=== PATIENT | female | born 1950 | race Caucasian/White ===

== ENCOUNTER → 2019-10-30 16:43 | Outpatient (CLI) | payer MEDICARE, OTHER, SELFPAY ==
--- NOTE | 2019-10-30 17:05 | DI.MG.S_ITS ---
Patient Name: CHELLE CHOWDHURY date: 1950 Sex: F Attending Physician: Nubia Indications: Date: 10/30/2019 16:56 At the request of: KEVIN JUAREZ Procedure: MM screening mammo BI BILATERAL DIGITAL SCREENING MAMMOGRAM 3D/2D WITH CAD: 10/30/2019 CLINICAL: Routine screening. Comparison is made to exams dated: 03/11/2018 mammogram, 05/08/2016 mammogram, and 10/27/2013 mammogram - outside location. The tissue of both breasts is predominantly fatty. Current study was also evaluated with a Computer Aided Detection (CAD) system. No significant masses, calcifications, or other findings are seen in either breast. There has been no significant interval change. IMPRESSION: NEGATIVE There is no mammographic evidence of malignancy. A 1 year screening mammogram is recommended. This exam was interpreted at Station ID: [id number]. NOTE: For mammograms, a report in lay terms will be sent to the patient. Approximately 15% of breast malignancies will not be visualized mammographically. In the management of a palpable breast mass, a negative mammogram must not discourage biopsy of a clinically suspicious lesion. Electronically Signed By: Rambo jeronimo/stanford:10/31/2019 07:48:05 letter sent: Normal Exam ACR BI-RADS Category 1: Negative 3341F
== END ==
PROVIDERS: PCP Family Medicine; Referring Provider Family Medicine; Visit Provider Family Medicine
DX: Z12.31 Encounter for screening mammogram for malignant neoplasm of breast (principal)
CPT/HCPCS: 77063; 77067

== ENCOUNTER → 2020-01-01 19:33 | Outpatient (CLI) | payer MEDICARE, OTHER, SELFPAY ==
--- NOTE | 2020-01-01 | DI.RAD.S_ITS ---
PROCEDURE: XR KNEE STANDING BI INDICATIONS: Acute Left Knee Pain TECHNIQUE: A total of 2 views of the bilateral knees were obtained, weight-bearing frontal projections. COMPARISON: None. FINDINGS: Bones: No acute fractures or dislocations. Patellar alignment is normal on the sunrise view. No suspicious bony lesions. Joint spaces appear mildly reduced medially with weightbearing. Soft tissues: No knee joint effusions. No suspicious soft tissue calcification. IMPRESSION: A mild degree of medial compartment joint space narrowing is present symmetric bilaterally consistent with mild osteoarthritis as the underlying cause. Dictated by: Garo Blanco M.D. on 01/02/2020 at 9:12 Approved by: Garo Blanco M.D. on 01/02/2020 at 9:14
--- NOTE | 2020-01-01 | DI.RAD.S_ITS ---
PROCEDURE: XR KNEE LT 3V INDICATIONS: Acute Left Knee Pain TECHNIQUE: 3 views of the knee were acquired. COMPARISON: None. FINDINGS: Bones: No fractures or dislocations. No suspicious bony lesions. Soft tissues: No joint effusion. No suspicious soft tissue calcifications. IMPRESSION: No acute disease, minimal medial compartment jooint space narrowing. Dictated by: Garo Blanco M.D. on 01/02/2020 at 7:47 Approved by: Garo Blanco M.D. on 01/02/2020 at 7:48
== END ==
PROVIDERS: PCP Family Medicine; Referring Provider Family Medicine; Visit Provider Family Medicine
DX: M25.562 Pain in left knee (principal)
CPT/HCPCS: 73562; 73565

== ENCOUNTER → 2020-01-04 18:01 | Outpatient (CLI) | payer MEDICARE, OTHER, SELFPAY ==
--- NOTE | 2020-01-04 | DI.MRI.S_ITS ---
PROCEDURE: MR KNEE LT WO CON INDICATIONS: Acute left knee pain TECHNIQUE: Noncontrast sagittal PD fast spin echo and T2 fast spin echo with fat saturation, sagittal 3-D FLASH with fat saturation; coronal T1 spin echo and PD fast spin echo with fat saturation, and axial PD fast spin echo with fat saturation through the knee. COMPARISON: [facility], CR, XR KNEE STANDING BI, 01/01/2020, 19:41. FINDINGS: Image quality: There is mild inhomogeneous fat saturation. Menisci: There is a horizontally oriented longitudinal tear throughout the lateral meniscus involving the free edge and inferior articular surface. There is also extension peripherally with a parameniscal cyst in the lateral gutter measuring up to approximately 2.4 x 1.0 x 0.8 cm. The medial meniscus demonstrates mild degenerative signal without a discrete tear. The meniscal root ligaments also appear intact. Cruciate ligaments: The anterior and posterior cruciate ligaments appear intact. Medial structures: The medial collateral ligament appears intact. The semimembranosus tendon insertions and meniscocapsular junction appear intact. Visualized portions of the pes anserinus tendons appear intact without associated bursal fluid collections. Lateral structures: The lateral collateral ligament, long and short heads of the biceps femoris tendon appear intact. The popliteus tendon appears intact. Iliotibial band appears normal. Anterior structures: The quadriceps and patellar tendons appear intact. There is slight lateral tilt of the patella. No femoral trochlear dysplasia or ventral trochlear prominence. No edema in the infrapatellar fat pad. Bones and cartilage: No bone marrow contusions or fractures. There is mild cartilage thinning in the patellofemoral compartment with chondral fissuring along the median ridge of the patella with a small focus of subchondral edema. Joint space: There is physiologic knee joint fluid. No Son's cyst. Normal appearing synovial plicae are incidentally noted. IMPRESSION: 1. Complex tearing of the lateral meniscus with an associated parameniscal cyst in the lateral gutter. 2. Mild chondral fissuring along the median ridge of the patella with associated mild subchondral edema. Dictated by: Fitz Castillo M.D. on 01/05/2020 at 9:53 Approved by: Fitz Castillo M.D. on 01/05/2020 at 9:59
== END ==
PROVIDERS: PCP Family Medicine; Referring Provider Family Medicine; Visit Provider Family Medicine
DX: M25.562 Pain in left knee (principal); S83.8X2A Sprain of other specified parts of left knee, initial encounter
CPT/HCPCS: 73721

== ENCOUNTER 2020-08-11 10:38 | Emergency (ER) | payer MEDICARE, OTHER, SELFPAY ==
--- NOTE | 2020-08-11 10:42 | DI.RAD.S_ITS ---
PROCEDURE: XR CHEST 1V INDICATIONS: chest pain TECHNIQUE: One view of the chest was acquired. COMPARISON: None. FINDINGS: Surgical changes and devices: None. Lungs and pleura: Lungs are clear. No pleural effusions or pneumothorax. Mediastinum: Mediastinal contours appear normal. Heart size is normal. Bones and chest wall: No suspicious bony lesions. Overlying soft tissues appear unremarkable. IMPRESSION: No evidence acute pulmonary process. Dictated by: Jake Branch M.D. on 08/11/2020 at 10:25 Approved by: Jake Branch M.D. on 08/11/2020 at 10:26
[2020-08-11 10:43] VITALS: BMI 21.1
--- NOTE | 2020-08-11 10:57 | PC.NURSE ---
h/o stable angina and had RX nitro at home. Pt states she was hiking and started to have CP rad to L arm. resolved with rest and nitro x 2. takes verapamil 120mg daily. states triggered by heat and activity. Lungs clear. slight murmur heard in R sternal border. BP 158/91 s/p NTG x2 at home. 99% RA 66HR regular.
[2020-08-11 11:07] LABS: Add Manual Diff / Slide Review NO; Basophils Absolute Auto 0 /uL (0-100); Basophils Percent Auto 0.7 % (0-2); Eosinophils Absolute Auto 100 /uL (0-450); Eosinophils Percent Auto 1.3 % (2-4); Hematocrit 38.5 % (36-46); Lymphocytes Absolute Auto 1600 /uL (1100-4500); Lymphocytes Percent Auto 30.7 % (25-40); Mean Corpuscular HGB Conc 33.9 % (30-36); Mean Corpuscular Hemoglobin 31.4 PG (26-34); Mean Corpuscular Volume 92.7 fL (80-100); Monocytes Absolute Auto 400 /uL (0-900); Monocytes Percent Auto 8.3 % (3-14); Neutrophils Absolute Auto 3100 /uL (1500-7000); Platelet Count 176 X10^3/uL (150-400); Red Blood Cell Count 4.15 X10^6/uL (4.0-5.2); Red Cell Distribution Width 12.2 % (11.6-14.8); White Blood Cell Count 5.3 X10^3/uL (4.5-11.0)
[2020-08-11 11:26] LABS: Alanine Aminotransferase 34 IU/L (<35); Albumin 4.1 g/dL (3.5-5.0); Albumin Globulin Ratio 1.6 (1.0-2.8); Alkaline Phosphatase 56 U/L (38-126); Aspartate Aminotransferase 44 IU/L (14-36); BUN Creatinine Ratio 23.4 (6-22); Bilirubin Total 0.8 mg/dL (0.2-1.3); Blood Urea Nitrogen 18 mg/dL (7-17); Calcium 9.1 mg/dL (8.4-10.2); Carbon Dioxide 27 mmol/L (22-32); Chloride 101 mmol/L (98-107); Creatine Kinase 195 U/L (30-135); Estimated Glomerular Filt Rate > 60.0 mL/min (>60); Globulin 2.6 g/dL (1.7-4.1); Glucose 122 mg/dL (80-110); HEMOLYSIS < 15 (0-50); Lipase 184 U/L (23-300); Potassium 3.6 mmol/L (3.4-5.1); Sodium 135 mmol/L (137-145); Total Protein 6.7 g/dL (6.3-8.2)
[2020-08-11 11:37] LABS: Troponin I < 0.012 ng/mL (0.01-0.034)
[2020-08-11 11:41] LABS: CKMB % Relative Index 1.3 % (1.5-5.0); Creatine Kinase MB 2.53 ng/mL (<2.37)
[2020-08-11 12:23] VITALS: BP 164/90; PULSE 83; RESP 16; O2SAT 99
[2020-08-11 13:37] LABS: Troponin I < 0.012 ng/mL (0.01-0.034)
--- NOTE | 2020-08-11 14:06 | ED.CHESTPAIN ---
HPI - Chest Pain General Chief Complaint: Chest Pain Stated Complaint: chest pain Time Seen by Provider: 08/11/20 13:09 Source: patient Mode of arrival: Ambulatory Limitations: no limitations History of Present Illness HPI narrative: This is a 70-year-old female comes emergency department with complaint of anginal symptoms. Patient states that she was on a hike today in the heat after she completed hiking she started to have discomfort in her left upper extremity. She felt just some pressure sort of discomfort. She states it did not radiate to her chest, neck or back. Patient states that symptoms resolved after she took nitro sublingual that she had. She had similar symptoms 11 years ago, she had elevation in her troponin at that time. 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 Patient takes amlodipine daily. She takes aspirin intermittently. She does not take any other daily medications. She does not currently follow with a paymaster of purses. Patient has not had any cardiac stents. She has not had any stress testing since that time. She denies diaphoresis, nausea, shortness of breath. She denies any numbness or tingling down her arm. She denies any sense of syncope or lightheadedness. She denies any abdominal pain. Review of Systems Review of Systems ROS Unobtainable: All systems reviewed & are unremarkable except as noted in HPI and below Exam Narrative Exam Narrative: GENERAL: Alert and oriented x three, Well-nourished female in mild distress. HEENT: Head normocephalic, atraumatic, EOMI, pupils reactive, face symmetric, moist mucous membranes NECK: Supple, full range of motion CARDIOVASCULAR: Regular rate and rhythm without murmurs, rubs or gallops. RESPIRATORY: Breath sounds equal bilaterally, no wheezes rales or rhonchi. ABDOMEN: Soft, nontender. Normoactive bowel sounds all 4 quadrants. No guarding or rebound, rigidity, no mass : No CVA tenderness EXTREMITIES: Normal range of motion, no clubbing or edema. Neurovascularly intact NEUROLOGICAL: Cranial nerves II through XII grossly intact. Moving all extremities SKIN: Warm, dry, no petechiae, no rashes or lesions. Initial Vital Signs Initial Vital Signs: Vital Signs Pulse Rate 83 08/11/20 12:23 Respiratory Rate 16 08/11/20 12:23 Blood Pressure 164/90 H 08/11/20 12:23 Pulse Oximetry 99 08/11/20 12:23 Scores HEART Score Heart Score history: Highly Suspicious Heart Score EKG: Non-Specific repolarization disturbance Heart Score Age: > or = 65 years old Heart Score risk factors: 1-2 risk factors Heart Score troponin: < or = to normal limit Heart Score Total: 6 Course Orders Ordered: ED Orders 08/11/20 13:00 Troponin I Stat 08/11/20 13:03 EKG-12 Lead Stat Consultations Consultation #1: Estela for cardiology, discussed the patient did not wish to stay. She politely refused observation but I feel she would benefit from follow-up and cardiac evaluation. Patient does not have a local Cardiology and he states they are happy to follow with the patient. Time: 14:22 Vital Signs Vital signs: Vital Signs - 8 hr 08/11/20 12:23 08/11/20 14:30 Pulse Rate 83 62 Respiratory Rate 16 16 Blood Pressure 164/90 H 166/82 H Pulse Oximetry 99 98 MDM - Chest Pain Lab Data Attestation: I reviewed the patient's lab results. Result diagrams: 08/11/20 10:52 08/11/20 10:52 Labs: Lab Results 08/11/20 08/11/20 08/11/20 Range/Units 10:52 10:52 13:00 WBC 5.3 (4.5-11.0) X10^3/uL RBC 4.15 (4.0-5.2) X10^6/uL Hgb 13.0 (12.0-16.0) g/dL Hct 38.5 (36-46) % MCV 92.7 (80-100) fL MCH 31.4 (26-34) PG MCHC 33.9 (30-36) % RDW 12.2 (11.6-14.8) % Plt Count 176 (150-400) X10^3/uL Neut % (Auto) 59.0 (50-75) % Lymph % (Auto) 30.7 (25-40) % [place] % (Auto) 8.3 (3-14) % Eos % (Auto) 1.3 L (2-4) % Baso % (Auto) 0.7 (0-2) % Neut # (Auto) 3100 (0055-8026) /uL Lymph # (Auto) 1600 (9046-0287) /uL [place] # (Auto) 400 (0-900) /uL Eos # (Auto) 100 (0-450) /uL Baso # (Auto) 0 (0-100) /uL Sodium 135 L (137-145) mmol/L Potassium 3.6 (3.4-5.1) mmol/L Chloride 101 (98-107) mmol/L Carbon Dioxide 27 (22-32) mmol/L BUN 18 H (7-17) mg/dL Creatinine 0.77 (0.52-1.04) mg/dL Estimated GFR > 60.0 (>60) mL/min BUN/Creatinine Ratio 23.4 H (6-22) Glucose 122 H (80-110) mg/dL Calcium 9.1 (8.4-10.2) mg/dL Total Bilirubin 0.8 (0.2-1.3) mg/dL AST 44 H (14-36) IU/L ALT 34 (<35) IU/L Alkaline Phosphatase 56 (38-126) U/L Total Creatine Kinase 195 H (30-135) U/L CK-MB (CK-2) 2.53 H (<2.37) ng/mL CK-MB (CK-2) Rel Index 1.3 L (1.5-5.0) % Troponin I < 0.012 < 0.012 (0.01-0.034) ng/mL Total Protein 6.7 (6.3-8.2) g/dL Albumin 4.1 (3.5-5.0) g/dL Globulin 2.6 (1.7-4.1) g/dL Albumin/Globulin Ratio 1.6 (1.0-2.8) Lipase 184 (23-300) U/L Imaging Data Chest x-ray: Radiologist's Impression: Patricia Rodriguez 70 F [address] [id number] ReportSigned Patient: Patricia Rodriguez EMR#: [id number]: 9Acct:[id number]/Sex: 70 / FDate of Service: 08/11/20Loc: EDAccession Number: [id number] Procedure: XR chest 1V Ordering Provider: Bijal Franklin D.O. PROCEDURE: XR CHEST 1V INDICATIONS: chest pain TECHNIQUE: One view of the chest was acquired. COMPARISON: None. FINDINGS: Surgical changes and devices: None. Lungs and pleura: Lungs are clear. No pleural effusions or pneumothorax. Mediastinum: Mediastinal contours appear normal. Heart size is normal. Bones and chest wall: No suspicious bony lesions. Overlying soft tissues appear unremarkable. IMPRESSION: No evidence acute pulmonary process. Dictated by: Jake Branch M.D. on 08/11/2020 at 10:25 Approved by: Jake Branch M.D. on 08/11/2020 at 10:26 ECG Data Attestation: I personally reviewed and interpreted this ECG as follows: Prior ECG tracings: available for review Interpretation: EKG 1. Shows a rate of 80, P are 148, QRS is 74 and QTC of 424. Inverted T-wave in lead 3. Possibly some depression in AVF. No elevation is appreciated. EKG 2. Shows sinus rhythm. Rate of 73 P are 132, QRS is 76 and QTC 431. Patient has similar changes in lead 3. No elevation appreciated. MDM Narrative Medical decision making narrative: Discussed with patient offered observation as I feel this is cardiac in nature. She is reluctant to stay. She has nitro at home which was helpful for her symptoms and resolved them. Encourage take an aspirin daily and have short-term follow-up with cardiology for stress testing. She has a primary care physician she can contact and also reached out to Cardiology myself to help her facilitate short-term follow-up. Patient is aware that I am concerned about a cardiac cause and that it has been 11 years since her last catheterization and she could very easily have developed atherosclerotic disease. Patient was encouraged to return any time if she had recurrent symptoms or concerns. Discharge Plan Departure Patient Disposition: Home Clinical Impression: Chest pain Instructions: DI for Angina Activity Restrictions/Additional Instructions: Follow up with your physician or cardiology for evaluation and stress testing in the next couple days. I would recommend observation overnight for serial heart enzymes and stress testing tomorrow. I do think your symptoms are related to your heart although your troponin today is negative. Continue an aspirin 324mg daily Continue your home medications as prescribed If you have recurrent symptoms please take a nitro please stay and return to the emergency department. Please return for new or worsening symptoms, recurrent chest pain, arm discomfort or neck pain, lightheadedness, passingOut, diaphoresis, shortness of breath, persistent nausea or vomiting or other new or concerning symptoms. Referrals: Marquis Delacruz MD [Primary Care Provider] - Rk Bustamante MD [Physician] -
[2020-08-11 14:30] VITALS: BP 166/82; PULSE 62; RESP 16; O2SAT 98
== END 2020-08-11 14:30 | disposition home or self-care (01) ==
PROVIDERS: Emergency Provider Emergency Medicine; PCP Family Medicine
DX: R07.9 Chest pain, unspecified (principal)
CPT/HCPCS: 36415; 71045; 80053; 82550; 82553; 83690; 84484; 85025; 93005; 99283; 99284

== ENCOUNTER → 2020-08-27 13:49 | Outpatient (CLI) | payer MEDICARE, OTHER, SELFPAY ==
--- NOTE | 2020-08-27 | DI.RAD.S_ITS ---
PROCEDURE: XR KNEE RT 3V INDICATIONS: pain right knee, with sensations of clicking and locking TECHNIQUE: 3 views of the knee were acquired. COMPARISON: None. FINDINGS: Bones: No fractures or dislocations. No suspicious bony lesions. Mild medial and patellofemoral compartment osteoarthritis with marginal osteophytosis. Soft tissues: No joint effusion. No suspicious soft tissue calcifications. IMPRESSION: Mild medial patellofemoral compartment right knee osteoarthritis. Dictated by: Michelle Rodriguez MD, PhD on 08/27/2020 at 16:07 Approved by: Michelle Rodriguez MD, PhD on 08/27/2020 at 16:08
== END ==
PROVIDERS: PCP Family Medicine; Referring Provider Family Medicine; Visit Provider Family Medicine
DX: M25.561 Pain in right knee (principal); M23.91 Unspecified internal derangement of right knee; M17.11 Unilateral primary osteoarthritis, right knee
CPT/HCPCS: 73562

== ENCOUNTER → 2020-09-17 18:28 | Outpatient (CLI) | payer MEDICARE, OTHER, SELFPAY ==
--- NOTE | 2020-09-17 | DI.MRI.S_ITS ---
PROCEDURE: MR KNEE RT WO CON INDICATIONS: Other instability, right knee TECHNIQUE: Noncontrast sagittal PD fast spin echo and T2 fast spin echo with fat saturation, sagittal 3-D FLASH with fat saturation; coronal T1 spin echo and PD fast spin echo with fat saturation, and axial PD fast spin echo with fat saturation through the knee. COMPARISON: [facility], MR, MR KNEE LT WO CON, 01/04/2020, 18:20. FINDINGS: Menisci: Medial meniscus: Ill-defined medial meniscal intrasubstance signal changes and mild enlargement involving the body with partial extrusion. Lateral meniscus: Discoid appearance. Irregularity of the free margin of the lateral meniscus at the junction of the anterior horn and body Cruciate ligaments: Anterior cruciate ligament: Intact. Posterior cruciate ligament: Intact. Medial structures: The medial collateral ligament: Intact. Semimembranosus tendon: Intact. Visualized pes anserinus tendons: Intact. Bursal fluid: none. Lateral structures: The lateral collateral ligament intact. Biceps femoris tendon appears intact. Popliteus tendon grossly unremarkable. Iliotibial band appears intact. Anterior structures: Quadriceps tendon: Intact. Medial patellofemoral ligament: Intact. Lateral patellofemoral ligament: Intact. Patellar tendon: Mild distal tendinopathy. Anterior soft tissues: Prepatellar and superficial infrapatellar subcutaneous edema/fluid. Deep infrapatellar region: Trace fluid. Bones and cartilage: Marrow: No focal marrow contusion or discrete low signal fracture line. Medial compartment: No focal chondral defect. Mild intrasubstance signal changes. Lateral compartment: No chondral defect. Patellofemoral compartment: Mild surface fraying of the cartilage overlying the median patellar ridge with trace subchondral marrow signal change. The femoral trochlear cartilage appears grossly intact. Joint space: Effusion: No pathologic knee joint effusion. Popliteal fossa: Small Son's cyst measuring 3 cm in the cephalocaudal dimension. Loose bodies: None. IMPRESSION: Discoid lateral meniscus, with irregularity involving the free margin at the junction of the anterior horn and body. This is only seen on 1 plane and does not meet strict criteria, although is suspicious for tear. Please correlate clinically to exam findings. 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 Small Son's cyst Mild patellofemoral chondromalacia Dictated by: Rosalino Isabel M.D. on 09/18/2020 at 10:49 Approved by: Rosalino Isabel M.D. on 09/18/2020 at 10:56
== END ==
PROVIDERS: PCP Family Medicine; Referring Provider Family Medicine; Visit Provider Family Medicine
DX: M25.361 Other instability, right knee (principal); M25.561 Pain in right knee; M71.21 Synovial cyst of popliteal space [Baker], right knee; M22.41 Chondromalacia patellae, right knee
CPT/HCPCS: 73721

== ENCOUNTER → 2020-09-23 14:26 | Outpatient (CLI) | payer MEDICARE, OTHER, SELFPAY ==
--- NOTE | 2020-09-23 | DI.US.S_ITS ---
PROCEDURE: US PELVIC COMPLETE INDICATIONS: RT CYST TECHNIQUE: Real-time scanning was performed of the pelvic organs, with image documentation. Additional endovaginal scanning was necessary due to incomplete visualization of the adnexal and endometrial structures by transabdominal scanning. COMPARISON: [facility], RG, US PELVIC, 05/04/2018, 7:25. FINDINGS: Uterus: Uterus is normal in size at 5.3 x 1.8 x 3.3 cm. The endometrium measures 1.4 mm in combined thickness. Possible submucosal fibroid measuring 4 mm. Anterior subserosal fibroid also present measuring 9 mm. Ovaries: Left ovary is not visualized. Right ovary measures 4.8 x 3.2 x 3.8 cm and there is a 4.0 x 3.5 x 3.9 cm right ovarian cyst. Other: No pathologic free abdominal or pelvic fluid. IMPRESSION: 1. 4 cm right simple ovarian cyst which appears similar to prior examination dated 05/04/2018. Continued sonographic surveillance is recommended. 2. Possible 4 mm submucosal fibroid in 9 mm subserosal fibroid. Dictated by: Caleb OCAMPO Interpreted: Mariela Price MD on 09/23/2020 at 15:44 Approved by: Mariela Price M.D. on 09/23/2020 at 16:34
== END ==
PROVIDERS: PCP Family Medicine; Referring Provider Family Medicine; Visit Provider Family Medicine
DX: N83.291 Other ovarian cyst, right side (principal); D25.2 Subserosal leiomyoma of uterus
CPT/HCPCS: 76830; 76856

== ENCOUNTER → 2021-01-23 13:24 | Outpatient (CLI) | payer MEDICARE, OTHER, SELFPAY ==
--- NOTE | 2021-01-23 13:27 | DI.RAD.S_ITS ---
PROCEDURE: XR HIP W PEL IF DONE LT 2V INDICATIONS: L hip pain, sharp, hx of lymphoma TECHNIQUE: AP pelvis with lateral view(s) of the left hip(s). COMPARISON: None. FINDINGS: Bones: No fractures or dislocations. Mild left hip joint osteoarthritic changes are seen. Pelvic ring appears intact. No suspicious bony lesions. Soft tissues: The visualized bowel gas pattern is normal. No suspicious soft tissue calcifications. IMPRESSION: No hip fracture or dislocation. Mild left hip joint osteoarthritis. No evidence of avascular necrosis. No gross osseous lesion is seen. Dictated by: Tapan Shearer M.D. on 01/23/2021 at 14:01 Approved by: Tapan Shearer M.D. on 01/23/2021 at 14:02
[2021-01-23 13:46] LABS: Add Manual Diff / Slide Review NO; Basophils Absolute Auto 0 /uL (0-100); Basophils Percent Auto 0.6 % (0-2); Eosinophils Absolute Auto 100 /uL (0-450); Eosinophils Percent Auto 0.9 % (2-4); Hematocrit 40.9 % (36-46); Lymphocytes Absolute Auto 1400 /uL (1100-4500); Lymphocytes Percent Auto 22.7 % (25-40); Mean Corpuscular HGB Conc 34.2 % (30-36); Mean Corpuscular Hemoglobin 31.5 PG (26-34); Mean Corpuscular Volume 92.3 fL (80-100); Monocytes Absolute Auto 500 /uL (0-900); Monocytes Percent Auto 7.6 % (3-14); Neutrophils Absolute Auto 4200 /uL (1500-7000); Neutrophils Percent Auto 68.2 % (50-75); Platelet Count 229 X10^3/uL (150-400); Red Blood Cell Count 4.43 X10^6/uL (4.0-5.2); Red Cell Distribution Width 12.5 % (11.6-14.8); White Blood Cell Count 6.1 X10^3/uL (4.5-11.0)
[2021-01-23 14:09] LABS: Alanine Aminotransferase 28 IU/L (<35); Albumin 4.4 g/dL (3.5-5.0); Albumin Globulin Ratio 1.5 (1.0-2.8); Alkaline Phosphatase 68 U/L (38-126); Aspartate Aminotransferase 34 IU/L (14-36); BUN Creatinine Ratio 21.4 (6-22); Bilirubin Total 0.5 mg/dL (0.2-1.3); Blood Urea Nitrogen 18 mg/dL (7-17); Calcium 9.6 mg/dL (8.4-10.2); Carbon Dioxide 30 mmol/L (22-32); Chloride 102 mmol/L (98-107); Estimated Glomerular Filt Rate > 60.0 mL/min (>60); Globulin 2.9 g/dL (1.7-4.1); Glucose 150 mg/dL (80-110); HEMOLYSIS < 15 (0-50); Potassium 4.3 mmol/L (3.4-5.1); Sodium 139 mmol/L (137-145); Total Protein 7.3 g/dL (6.3-8.2)
== END ==
PROVIDERS: PCP Family Medicine; Referring Provider Physician Assistant; Visit Provider Physician Assistant
DX: M16.12 Unilateral primary osteoarthritis, left hip (principal); M25.552 Pain in left hip; Z85.72 Personal history of non-Hodgkin lymphomas
CPT/HCPCS: 36415; 73502; 80053; 85025

== ENCOUNTER → 2021-02-19 | Outpatient (CLI) | payer MEDICARE, OTHER, SELFPAY ==
--- NOTE | 2021-02-19 | DI.MG.S_ITS ---
BILATERAL DIGITAL SCREENING MAMMOGRAM 3D/2D WITH CAD: 02/19/2021 CLINICAL: Routine screening. Family history of breast cancer. Comparison is made to exams dated: 10/30/2019 mammogram - [facility], 03/11/2018 mammogram, and 05/08/2016 mammogram - outside location. There are scattered fibroglandular elements in both breasts. Current study was also evaluated with a Computer Aided Detection (CAD) system. No significant masses, calcifications, or other findings are seen in either breast. There has been no significant interval change. IMPRESSION: NEGATIVE There is no mammographic evidence of malignancy. A 1 year screening mammogram is recommended. This exam was interpreted at Station ID: [id number]. NOTE: For mammograms, a report in lay terms will be sent to the patient. Approximately 15% of breast malignancies will not be visualized mammographically. In the management of a palpable breast mass, a negative mammogram must not discourage biopsy of a clinically suspicious lesion. Electronically Signed By: Doug guadalupe/stanford:02/20/2021 10:00:29 letter sent: Normal Exam ACR BI-RADS Category 1: Negative 3341F
== END ==
LOC: MAMMO 16:28
PROVIDERS: PCP Family Medicine; Referring Provider Family Medicine; Visit Provider Family Medicine
DX: Z12.31 Encounter for screening mammogram for malignant neoplasm of breast (principal); Z80.3 Family history of malignant neoplasm of breast
CPT/HCPCS: 77063; 77067

== ENCOUNTER → 2021-03-29 07:55 | Outpatient (CLI) | payer MEDICARE, OTHER, SELFPAY ==
[2021-03-29 09:56] LABS: Add Manual Diff / Slide Review NO; Basophils Absolute Auto 0 /uL (0-100); Basophils Percent Auto 0.5 % (0-2); Eosinophils Absolute Auto 100 /uL (0-450); Hematocrit 39.6 % (36-46); Hemoglobin 13.3 g/dL (12.0-16.0); Lymphocytes Absolute Auto 1400 /uL (1100-4500); Lymphocytes Percent Auto 26.8 % (25-40); Mean Corpuscular HGB Conc 33.6 % (30-36); Mean Corpuscular Hemoglobin 31.3 PG (26-34); Mean Corpuscular Volume 93.2 fL (80-100); Monocytes Absolute Auto 400 /uL (0-900); Monocytes Percent Auto 7.9 % (3-14); Neutrophils Absolute Auto 3300 /uL (1500-7000); Neutrophils Percent Auto 63.8 % (50-75); Platelet Count 190 X10^3/uL (150-400); Red Blood Cell Count 4.25 X10^6/uL (4.0-5.2); Red Cell Distribution Width 12.4 % (11.6-14.8); White Blood Cell Count 5.2 X10^3/uL (4.5-11.0)
[2021-03-29 10:31] LABS: Alanine Aminotransferase 33 IU/L (<35); Albumin 4.1 g/dL (3.5-5.0); Albumin Globulin Ratio 1.6 (1.0-2.8); Alkaline Phosphatase 56 U/L (38-126); Aspartate Aminotransferase 41 IU/L (14-36); BUN Creatinine Ratio 18.1 (6-22); Bilirubin Total 0.6 mg/dL (0.2-1.3); Blood Urea Nitrogen 15 mg/dL (7-17); Calcium 9.3 mg/dL (8.4-10.2); Carbon Dioxide 34 mmol/L (22-32); Chloride 103 mmol/L (98-107); Cholesterol 193 mg/dL (140-199); Estimated Glomerular Filt Rate > 60.0 mL/min (>60); Globulin 2.6 g/dL (1.7-4.1); Glucose 89 mg/dL (80-110); HDL Cholesterol 70 mg/dL (40-60); HEMOLYSIS < 15 (0-50); LDL Cholesterol Calculated 109 mg/dL (<100); Lactate Dehydrogenase 383 U/L (313-618); Potassium 3.8 mmol/L (3.4-5.1); Sodium 139 mmol/L (137-145); Total Protein 6.7 g/dL (6.3-8.2); Triglycerides 69 mg/dL (35-150)
[2021-03-29 10:44] LABS: Vitamin D 25 Hydroxy (D3) 58.3 ng/mL (30.0-100.0)
[2021-03-29 10:57] LABS: Thyroid Stimulating Hormone 2.87 uIU/mL (0.47-4.68)
[2021-03-30 12:07] LABS: IGA 266 mg/dL (64-422); IGG 788 mg/dL (586-1602); IGM 97 mg/dL (26-217)
== END ==
PROVIDERS: PCP Family Medicine; Referring Provider Family Medicine; Visit Provider Family Medicine
DX: I10 Essential (primary) hypertension (principal); E55.9 Vitamin D deficiency, unspecified; C85.80 Other specified types of non-Hodgkin lymphoma, unspecified site
CPT/HCPCS: 36415; 80053; 80061; 82306; 82784; 83615; 84443; 85025

== ENCOUNTER → 2021-07-28 13:53 | Outpatient (CLI) | payer MEDICARE, OTHER, SELFPAY ==
--- NOTE | 2021-07-28 13:55 | DI.NM.S_ITS ---
PROCEDURE: NM EXERCISE TREADMILL NON NUC COMPARISON: None. INDICATIONS: Chest pain, unspecified FINDINGS: The patient exercised for 7 minutes and 58 seconds reaching 8.0 METs, NEGRITA -39%. 103% of maximum predicted heart rate achieved. Appropriate BP response to exercise. No chest pain, no ectopy, and no ST changes with exercise or during recovery. IMPRESSION: Low risk, normal treadmill ECG only stress test with good exercise tolerance (NEGRITA -39%). Dictated by: Rk Bustamante MD on 07/28/2021 at 16:46 Approved by: Rk Bustamante MD on 07/28/2021 at 16:47
--- NOTE | 2021-07-28 15:50 | PM.TREADMILL ---
Cardiac Stress Test Report Referral & Results Date Patient Seen: 07/28/21 Time Patient Seen: 15:51 Requesting provider: Rk Bustamante Indication: Chest pain Rest ECG: SSinus rhythm Procedure Note: Standard [place] protocol, 7:58 mins, 8.0 METS Very good exercise capacity, NEGRITA -39% No chest pain or anginal symptoms Normal hemodynamic response to exercise No significant ST changes at peak exercise No ectopy Impression: Normal exercise stress test Please note: Actual ECG tracings can be found in the PACS system.
== END ==
PROVIDERS: PCP Family Medicine; Referring Provider Internal Medicine Cardiovascular Disease; Visit Provider Internal Medicine Cardiovascular Disease
DX: R07.9 Chest pain, unspecified (principal)
CPT/HCPCS: 93017

== ENCOUNTER 2021-08-26 19:16 | Emergency (ER) | payer MEDICARE, OTHER, SELFPAY ==
[2021-08-26 19:24] VITALS: BP 167/80; PULSE 82; RESP 15; TEMP 36.8; O2SAT 100; BMI 20.3
== END 2021-08-26 20:51 | disposition left against medical advice (07) ==
PROVIDERS: Emergency Provider Emergency Medicine; PCP Family Medicine
CPT/HCPCS: 99281

== ENCOUNTER 2021-11-09 00:10 | Emergency (ER) | payer MEDICARE, OTHER, SELFPAY ==
[2021-11-09] VITALS (11 sets, daily range): BP systolic 159–213; BP diastolic 74–107; PULSE 75–98; RESP 6–18; TEMP 36.7; O2SAT 92–100; BMI 20.8
--- NOTE | 2021-11-09 00:32 | DI.RAD.S_ITS ---
PROCEDURE: XR CHEST 1V INDICATIONS: chest pain TECHNIQUE: One view of the chest was acquired. COMPARISON: [facility], CR, XR CHEST 1V, 08/11/2020, 11:08. FINDINGS: Surgical changes and devices: None. Lungs and pleura: Lungs are clear. No pleural effusions or pneumothorax. Mediastinum: Mediastinal contours appear normal. Heart size is normal. Bones and chest wall: No suspicious bony lesions. Overlying soft tissues appear unremarkable. IMPRESSION: Normal for age, source of current chest pain symptoms is not seen. Dictated by: Garo Blanco M.D. on 11/09/2021 at 0:46 Approved by: Garo Blanco M.D. on 11/09/2021 at 0:46
[2021-11-09 00:44] LABS: Alanine Aminotransferase 29 IU/L (<35); Albumin 4.5 g/dL (3.5-5.0); Albumin Globulin Ratio 1.5 (1.0-2.8); Alkaline Phosphatase 73 U/L (38-126); Aspartate Aminotransferase 38 IU/L (14-36); BUN Creatinine Ratio 30.4 (6-22); Bilirubin Total 0.5 mg/dL (0.2-1.3); Blood Urea Nitrogen 24 mg/dL (7-17); Calcium 9.3 mg/dL (8.4-10.2); Carbon Dioxide 28 mmol/L (22-32); Chloride 104 mmol/L (98-107); Creatine Kinase 200 U/L (30-135); Estimated Glomerular Filt Rate > 60 mL/min (>60); Glucose 113 mg/dL (80-110); HEMOLYSIS < 15 (0-50); Lipase 224 U/L (23-300); Potassium 3.4 mmol/L (3.4-5.1); Sodium 141 mmol/L (137-145); Total Protein 7.5 g/dL (6.3-8.2)
[2021-11-09] MEDS: SODIUM CHLORIDE 0.9% 1,000 ML 500 ML IV (00:44)
[2021-11-09 00:47] LABS: Add Manual Diff / Slide Review NO; Basophils Absolute Auto 200 /uL (0-100); Basophils Percent Auto 3.7 % (0-2); Eosinophils Absolute Auto 0 /uL (0-450); Eosinophils Percent Auto 0.7 % (2-4); Hematocrit 40.4 % (36-46); Lymphocytes Absolute Auto 1700 /uL (1100-4500); Lymphocytes Percent Auto 25.5 % (25-40); Mean Corpuscular HGB Conc 34.6 % (30-36); Mean Corpuscular Hemoglobin 31.7 PG (26-34); Mean Corpuscular Volume 91.6 fL (80-100); Monocytes Absolute Auto 500 /uL (0-900); Neutrophils Absolute Auto 4200 /uL (1500-7000); Neutrophils Percent Auto 63.1 % (50-75); Platelet Count 181 X10^3/uL (150-400); Red Blood Cell Count 4.42 X10^6/uL (4.0-5.2); Red Cell Distribution Width 12.4 % (11.6-14.8); White Blood Cell Count 6.6 X10^3/uL (4.5-11.0)
[2021-11-09 00:56] LABS: Troponin I < 0.012 ng/mL (0.01-0.034)
[2021-11-09 00:59] LABS: CKMB % Relative Index 1.3 % (1.5-5.0)
[2021-11-09 01:03] LABS: NT-proBNP (BNP-Adult 18+) 108 pg/mL (<125)
--- NOTE | 2021-11-09 02:52 | ED_ITS ---
HPI - Arrhythmia/Palpitations General Chief Complaint: Arrhythmia/Palpitations Stated Complaint: BP HIGH/HEART FLUTTERING Time Seen by Provider: 11/09/21 00:37 Source: patient Mode of arrival: Ambulatory History of Present Illness HPI narrative: This is a 71-year-old female with history of hypertension and palpitations on amlodipine only. Patient states today she worked very hard in the [employer] she did drink lot of fluids he would a lot of tomatoes made her lower abdomen quite uncomfortable now resolved. She then had a lot of fluttering in her chest which is atypical she sometimes has some but this was much more frequent persistent for about 8 hours. Patient denies any chest pain or pressure the fluttering was sternal. She denies shortness of breath, no syncope, no diaphoresis no swelling. Patient states she had cardiac catheterization 12 years ago which was negative and had a cardiac stress test 2 months ago which was negative and follows with Dr. Bustamante from cardiology. 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 She is not had any cardiac stents, no cardiac ablations. She is been told she has a murmur by her physician in the past but does not think she is had an echo in the last several years. Related Data Home Medications Medication Instructions Recorded Confirmed amlodipine 5 mg tablet 5 mg PO DAILY 11/04/20 12/02/20 Allergies Allergy/AdvReac Type Severity Reaction Status Date / Time Iodinated Contrast Media Allergy Verified 08/26/21 19:29 shrimp Allergy Verified 08/26/21 19:29 Review of Systems Review of Systems ROS Unobtainable: All systems reviewed & are unremarkable except as noted in HPI and below Patient History Social History Smoking Status: Never smoker Smoking Status: Never smoker alcohol intake frequency: 0-2 drinks per day Substance Use Type: does not use Exam Narrative Exam Narrative: GENERAL: Alert and oriented x three, thin, well-appearing female in no acute distress. HEENT: Head normocephalic, atraumatic, EOMI, pupils reactive, face symmetric, moist mucous membranes NECK: Supple, full range of motion CARDIOVASCULAR: Regular rate and rhythm with 2/6 systolic ejection murmur heard best at the right upper sternal border, no rubs or gallops. RESPIRATORY: Breath sounds equal bilaterally, no wheezes rales or rhonchi. ABDOMEN: Soft, nontender. Normoactive bowel sounds all 4 quadrants. No guarding or rebound, rigidity, no mass : No CVA tenderness EXTREMITIES: Normal range of motion, no clubbing or edema. Neurovascularly intact NEUROLOGICAL: Cranial nerves II through XII grossly intact. Moving all extremities. Normal gait. SKIN: Warm, dry, no petechiae, no rashes or lesions. Initial Vital Signs Initial Vital Signs: Vital Signs Pulse Rate 92 H 11/09/21 00:25 Respiratory Rate 8 L 11/09/21 00:25 Pulse Oximetry 100 11/09/21 00:25 Scores HEART Score Heart Score history: Slightly Suspicious Heart Score EKG: Significant ST depression Heart Score Age: > or = 65 years old Heart Score risk factors: 1-2 risk factors Heart Score troponin: < or = to normal limit Heart Score Total: 5 Course Orders Ordered: ED Orders 11/09/21 EKG-12 Lead Routine 11/09/21 00:25 BNP [NT-proBNP (BNP-Adult 18+)] Stat Complete Blood Count AUTO DIFF Stat Comprehensive Metabolic Panel Stat Lipase Stat Magnesium Stat Troponin & CK Cardiac Panel Stat 11/09/21 00:32 XR chest 1V Stat EKG-12 Lead Stat 11/09/21 02:30 Trop I [Troponin I] Stat Discontinued Medications Aspirin (Aspirin 81 Mg Chew Tab) 324 mg PO NOW ONE Stop: 11/09/21 03:12 Last Admin: 11/09/21 03:25 Dose: 324 mg Documented By: YOLIE Sodium Chloride (Normal Saline 0.9%) 1,000 mls @ 500 mls/hr IV BOLUS ONE Stop: 11/09/21 02:37 Last Infusion: 11/09/21 02:58 Dose: 0 mls/hr Documented By: Admin: 11/09/21 00:44 Dose: 500 mls/hr Documented By: DKMirtha Consultations Consultation #1: Dr. Quevedo, cardiology. Discussed case in labs, symptoms today ST depression on her 1st EKG with resolution on repeat 2nd patient was not having any chest p ain or pressure but was having a sensation palpitations. Discussed our findings today she would like patient to follow up outpatient have echo and further workup with Dr. Bustamante. Time: 03:05 Vital Signs Vital signs: Vital Signs - 8 hr 11/09/21 00:27 11/09/21 00:25 11/09/21 00:30 Temperature 98.0 F Pulse Rate 98 H 92 H 94 H Respiratory Rate 17 8 L 10 L Blood Pressure 210/107 H Pulse Oximetry 97 100 100 Oxygen Delivery Method Room Air 11/09/21 00:31 11/09/21 00:31 11/09/21 01:00 Temperature Pulse Rate 95 H 75 Respiratory Rate 18 8 L Blood Pressure 213/95 H Pulse Oximetry 100 100 Oxygen Delivery Method 11/09/21 01:01 11/09/21 01:01 11/09/21 01:30 Temperature Pulse Rate 76 Respiratory Rate 6 L Blood Pressure 177/74 H 167/87 H Pulse Oximetry 100 Oxygen Delivery Method 11/09/21 01:30 11/09/21 02:00 11/09/21 02:00 Temperature Pulse Rate 80 85 Respiratory Rate 12 14 Blood Pressure 162/95 H Pulse Oximetry 100 100 Oxygen Delivery Method 11/09/21 02:18 11/09/21 02:18 11/09/21 02:30 Temperature Pulse Rate 85 Respiratory Rate 12 Blood Pressure 164/84 H 159/86 H Pulse Oximetry 92 Oxygen Delivery Method 11/09/21 02:30 11/09/21 03:00 11/09/21 03:00 Temperature Pulse Rate 83 91 H Respiratory Rate 14 15 Blood Pressure 178/90 H Pulse Oximetry 99 Oxygen Delivery Method MDM - Arrhythmia/Palpitations Lab Data Result diagrams: 11/09/21 00:25 11/09/21 00:25 Labs: Lab Results 11/09/21 11/09/21 11/09/21 Range/Units 00:25 00:25 00:25 WBC 6.6 (4.5-11.0) X10^3/uL RBC 4.42 (4.0-5.2) X10^6/uL Hgb 14.0 (12.0-16.0) g/dL Hct 40.4 (36-46) % MCV 91.6 (80-100) fL MCH 31.7 (26-34) PG MCHC 34.6 (30-36) % RDW 12.4 (11.6-14.8) % Plt Count 181 (150-400) X10^3/uL Neut % (Auto) 63.1 (50-75) % Lymph % (Auto) 25.5 (25-40) % [place] % (Auto) 7.0 (3-14) % Eos % (Auto) 0.7 L (2-4) % Baso % (Auto) 3.7 H (0-2) % Neut # (Auto) 4200 (5719-4281) /uL Lymph # (Auto) 1700 (9750-8597) /uL [place] # (Auto) 500 (0-900) /uL Eos # (Auto) 0 (0-450) /uL Baso # (Auto) 200 H (0-100) /uL Sodium 141 (137-145) mmol/L Potassium 3.4 (3.4-5.1) mmol/L Chloride 104 (98-107) mmol/L Carbon Dioxide 28 (22-32) mmol/L BUN 24 H (7-17) mg/dL Creatinine 0.79 (0.52-1.04) mg/dL Estimated GFR > 60 (>60) mL/min BUN/Creatinine Ratio 30.4 H (6-22) Glucose 113 H (80-110) mg/dL Calcium 9.3 (8.4-10.2) mg/dL Magnesium 2.0 (1.6-2.3) mg/dL Total Bilirubin 0.5 (0.2-1.3) mg/dL AST 38 H (14-36) IU/L ALT 29 (<35) IU/L Alkaline Phosphatase 73 (38-126) U/L Total Creatine Kinase 200 H (30-135) U/L CK-MB (CK-2) 2.50 H (<2.37) ng/mL CK-MB (CK-2) Rel Index 1.3 L (1.5-5.0) % Troponin I < 0.012 (0.01-0.034) ng/mL NT-Pro-B Natriuret Pep 108 (<125) pg/mL Total Protein 7.5 (6.3-8.2) g/dL Albumin 4.5 (3.5-5.0) g/dL Globulin 3.0 (1.7-4.1) g/dL Albumin/Globulin Ratio 1.5 (1.0-2.8) Lipase 224 (23-300) U/L 11/09/21 Range/Units 02:30 WBC (4.5-11.0) X10^3/uL RBC (4.0-5.2) X10^6/uL Hgb (12.0-16.0) g/dL Hct (36-46) % MCV (80-100) fL MCH (26-34) PG MCHC (30-36) % RDW (11.6-14.8) % Plt Count (150-400) X10^3/uL Neut % (Auto) (50-75) % Lymph % (Auto) (25-40) % [place] % (Auto) (3-14) % Eos % (Auto) (2-4) % Baso % (Auto) (0-2) % Neut # (Auto) (5903-9468) /uL Lymph # (Auto) (7944-2696) /uL [place] # (Auto) (0-900) /uL Eos # (Auto) (0-450) /uL Baso # (Auto) (0-100) /uL Sodium (137-145) mmol/L Potassium (3.4-5.1) mmol/L Chloride (98-107) mmol/L Carbon Dioxide (22-32) mmol/L BUN (7-17) mg/dL Creatinine (0.52-1.04) mg/dL Estimated GFR (>60) mL/min BUN/Creatinine Ratio (6-22) Glucose (80-110) mg/dL Calcium (8.4-10.2) mg/dL Magnesium (1.6-2.3) mg/dL Total Bilirubin (0.2-1.3) mg/dL AST (14-36) IU/L ALT (<35) IU/L Alkaline Phosphatase (38-126) U/L Total Creatine Kinase (30-135) U/L CK-MB (CK-2) (<2.37) ng/mL CK-MB (CK-2) Rel Index (1.5-5.0) % Troponin I < 0.012 (0.01-0.034) ng/mL NT-Pro-B Natriuret Pep (<125) pg/mL Total Protein (6.3-8.2) g/dL Albumin (3.5-5.0) g/dL Globulin (1.7-4.1) g/dL Albumin/Globulin Ratio (1.0-2.8) Lipase (23-300) U/L Imaging Data Chest x-ray: Radiologist's Impresson: Close Chest X-Ray (Signed) Garo Blanco - 11/09/21 Mammogram Screening (Signed) Doug Chamorro - 02/19/21 Hip X-Ray (Signed) Sushila Shearerng - 01/23/21 Pelvis Ultrasound (Signed) Mariela Price - 09/23/20 Knee MRI (Signed) Rosalino Isabel - 09/17/20 Knee X-Ray (Signed) Michelle Rodriguez - 08/27/20 EKG Rpt. 08/11/20 Chest X-Ray (Signed) aJke Branch - 08/11/20 Knee MRI (Signed) Fitz Castilol - 01/04/20 Knee X-Ray (Signed) Garo Blanco - 01/01/20 Knee X-Ray (Signed) Garo Blanco - 01/01/20 Mammogram Screening (Signed) Rambo Shepherd - 10/30/19 [place] [address] XRay Report Signed Patient: Patricia Rodriguez MR#: [id number] : 1950 Acct:[id number] Age/Sex: 71 / F Date of Service: 11/09/21 Loc: ED Accession Number: [id number] ?? Procedure: XR chest 1V Ordering Provider: Bijal Franklin D.O. PROCEDURE:? XR CHEST 1V ? INDICATIONS:? chest pain ? TECHNIQUE:? One view of the chest was acquired.? ? COMPARISON:? [facility], XR CHEST 1V, 08/11/2020, 11:08. ? FINDINGS:? ? Surgical changes and devices:? None.? ? Lungs and pleura:? Lungs are clear.? No pleural effusions or pneumothorax.? ? Mediastinum:? Mediastinal contours appear normal.? Heart size is normal.? ? Bones and chest wall:? No suspicious bony lesions.? Overlying soft tissues appear unremarkable.? ? IMPRESSION:? Normal for age, source of current chest pain symptoms is not seen. ? ? Dictated by: Garo Blanco M.D. on 11/09/2021 at 0:46 ? ? Approved by: Garo Blanco M.D. on 11/09/2021 at 0:46?? ECG Data Attestation: I personally reviewed and interpreted this ECG as follows: Interpretation: EKG 1. Shows rate of 92 AR 150 QRS is 74 and QTC of 445. Premature atrial complexes but sinus rhythm, nonspecific ST change depression in lateral leads no elevation appreciated. EKG 2. Shows sinus rhythm with premature atrial complexes rate 85 AR 154 QRS is 74 and QTC of 456. Patient has a possible artifact in lead 3 but no other acute changes patient is ST depression in V4 V5 appears improved. MDM Narrative Medical decision making narrative: This is a 71-year-old female history of hypertension intermittent palpitations no known cardiac arrhythmias who presents with significant palpitations today patient was quite hypertensive on arrival at ST depression which resolved blood pressure improved but not totally normalized here in the department without intervention. Patient did not have any chest pain or pressure at any point. She had negative troponin at 10 hours from onset of symptoms. Patient case was discussed with Cardiology feels appropriate for discharge, outpatient follow-up discussed with patient at length she can increase her blood pressure medication she is on amlodipine 5 mg to 10 mg and contact Cardiology Wednesday. Return precautions were discussed. Patient expresses understanding. Discharge Plan Departure Patient Disposition: Home Clinical Impression: Palpitations Instructions: DI for Palpitations Activity Restrictions/Additional Instructions: Follow-up with Dr. Bustamante, call Wednesday for an appointment. You did not have any new rhythm changes on your EKG but did have some change. Your blood pressure was quite elevated upon arrival and has improved so this may have been a cause but she should have an ECHO possibly other outpatient workup with Dr. Bustamante. Please continue to monitor your blood pressure if persistently elevated you can increase your amlodipine to 10 mg daily. I would recommend a baby aspirin daily until you see your jboss developer Please return for new or worsening chest pain or pressure, lightheadedness or passing out, persistent palpitations or fast heartbeat, sweatiness or diaphoresis, new swelling in her extremities or other new or concerning symptoms. Prescriptions: No Action amlodipine 5 mg tablet 5 mg PO DAILY Referrals: Marquis Delacruz MD [Primary Care Provider] - Rk Bustamante MD [Physician] - Visit Report Forms: Patient Portal/API
[2021-11-09 02:59] LABS: Troponin I < 0.012 ng/mL (0.01-0.034)
[2021-11-09] MEDS: ASPIRIN 81 MG CHEW TAB 324 MG PO (03:25)
== END 2021-11-09 03:39 | disposition home or self-care (01) ==
PROVIDERS: Emergency Provider Emergency Medicine; PCP Family Medicine
DX: R00.2 Palpitations (principal); I10 Essential (primary) hypertension
CPT/HCPCS: 36415; 71045; 80053; 82550; 82553; 83690; 83735; 83880; 84484; 85025; 93005; 99284

== ENCOUNTER → 2021-11-13 15:55 | Outpatient (CLI) | payer MEDICARE, OTHER, SELFPAY ==
--- NOTE | 2021-11-13 15:56 | DI.ECHO.S_ITS ---
[facility] +---------+ [facility] +---------+ : : [address] : : : : [id number] : : : : Phone: [phone]+ Echocardiogram Report + + :Name: CHELLE CHOWDHURY Study Date: 11/13/2021 Height: 67 in : :[facility] ReadingLocation: Weight: 130 lb : : Gender: Female BSA: 1.7 m2 : :: 1950 Age: 71 yrs BP: 149/92 mmHg: :Reason For Study: HYPERTENSION : :Ordering Physician: EDUARDO, : :JEANNETTE Performed By: Ronda Baeza : :Referring: SANDEEP JUAREZ : + + Interpretation Summary 1) Normal left ventricular size, thickness, wall motion, and systolic function (EF 60-65%). 2) The right ventricle is normal in size and function. 3) No significant valvular abnormalities. 4) No prior ECho available for comparison. Procedure: A two-dimensional transthoracic echocardiogram with color flow and Doppler was performed. The study quality was technically adequate. There is no prior echocardiogram noted for this patient. The patient was in sinus rhythm with heart rates between 63-73 bpm during the exam. Left Ventricle: The left ventricle is normal in size and wall thickness. The ejection fraction is estimated to be 60-65%. Left ventricular systolic function appears normal without focal wall motion abnormalities. Diastolic parameters suggest a relaxation abnormality of the left ventricle, consistent with probable normal filling pressures. Right Ventricle: The right ventricle is normal in size and function. Atria: The left atrium is moderately dilated. Right atrial size is normal. There is no Doppler evidence for an interatrial shunt. Mitral Valve: The mitral valve is normal in structure and function. There is mild mitral regurgitation. Aortic Valve: The aortic valve is trileaflet. The aortic valve opens well. There is no aortic valve stenosis. No aortic regurgitation is present. Tricuspid Valve: The tricuspid valve is normal in structure and function. There is mild tricuspid regurgitation. The right ventricular systolic pressure is estimated to be at least 27 mmHg based on an estimated right atrial pressure of 3 mm Hg. Pulmonic Valve: The pulmonic valve leaflets are thin and pliable; valve motion is normal. There is mild pulmonic regurgitation. Great Vessels: The aortic root is normal size. The ascending aorta is at the upper limits of normal in size. The IVC is of normal diameter and collapses greater than 50% with a sniff. This suggests a low right atrial pressure of 3 mm Hg. Pericardium/ Pleura There is no pericardial effusion. There is no pleural effusion. MMode/2D Measurements & Calculations LVIDd: 4.7 cm LVOT diam: 1.9 cm LVIDs: 2.9 cm Ao root diam: 2.8 cm FS: 38.6 % asc Aorta Diam: 3.7 cm IVSd: 0.74 cm Ao Arch Diam (Prox Trans): 2.7 cm LVPWd: 0.77 cm LV cheek. diameter/BSA (cm/m^2): 2.8 LV sys. diameter/BSA (cm/m^2): 1.7 LA A2 area: 20.4 cm2 RA long axis: 4.7 cm LA A4 area: 17.2 cm2 RA area: 14.3 cm2 LA length (vol): 4.7 cm RA vol: 37.2 ml LA vol: 62.7 ml RA : 22.1 ml/m2 LA vol index: 37.2 ml/m2 IVC diam: 1.2 cm RVD1 (basal): 3.1 cm TAPSE: 2.2 cm Doppler Measurements & Calculations Ao V2 max: 200.8 cm/sec LVOT Max Marko: 100.3 cm/sec Ao V2 mean: 147.5 cm/sec LV V1 max P.0 mmHg Ao max P.1 mmHg LV V1 VTI: 22.3 cm Ao mean P.6 mmHg GARCÍA(I,D): 1.5 cm2 Ao V2 VTI: 43.2 cm GARCÍA(V,D): 1.5 cm2 sev ratio: 0.52 GARCÍA indexed to BSA (cm^2/m^2): 0.90 MV E max marko: 78.0 cm/sec TR max marko: 243.6 cm/sec MV A max marko: 74.4 cm/sec TR max P.7 mmHg MV E/A: 1.0 PA V2 max: 114.4 cm/sec Med Peak E' Marko: 7.0 cm/sec PA V2 mean: 81.9 cm/sec E/E' med: 11.2 PA mean P.9 mmHg Lat Peak E' Marko: 6.5 cm/sec PA pr(Accel): 36.2 mmHg E/E' lat: 11.9 E/e' average: 11.6 MV dec time: 0.25 sec SVLVOT): 65.3 ml Reading Physician:08:42 PM
== END ==
PROVIDERS: PCP Family Medicine; Referring Provider Internal Medicine Cardiovascular Disease; Visit Provider Internal Medicine Cardiovascular Disease
DX: I10 Essential (primary) hypertension (principal); R07.9 Chest pain, unspecified; I08.1 Rheumatic disorders of both mitral and tricuspid valves
CPT/HCPCS: 93306

== ENCOUNTER → 2022-03-03 17:21 | Outpatient (CLI) | payer MEDICARE, SELFPAY ==
--- NOTE | 2022-03-03 | DI.MG.S_ITS ---
BILATERAL DIGITAL SCREENING MAMMOGRAM 3D/2D WITH CAD: 03/04/2022 CLINICAL: Routine screening. Family history of breast cancer. Comparison is made to exams dated: 02/19/2021 mammogram, 10/30/2019 mammogram - [facility], and 03/11/2018 mammogram - outside location. There are scattered areas of fibroglandular density in both breasts (category b / 25%-50% glandular tissue). Current study was also evaluated with a Computer Aided Detection (CAD) system. No significant masses, calcifications, or other findings are seen in either breast. There has been no significant interval change. IMPRESSION: NEGATIVE There is no mammographic evidence of malignancy. A 1 year screening mammogram is recommended. Based on the Tyrer Cuzick model (a risk assessment model) the patient's lifetime risk is 5.8% and her 10 year risk is 4.8%. According to the ACR, ACS, and NCCN guidelines, an annual breast MRI exam along with mammogram is recommended if the patient's lifetime risk is 20% or greater. This exam was interpreted at Station ID: [id number]. NOTE: For mammograms, a report in lay terms will be sent to the patient. Approximately 15% of breast malignancies will not be visualized mammographically. In the management of a palpable breast mass, a negative mammogram must not discourage biopsy of a clinically suspicious lesion. Electronically Signed By: Krysten leo/stanford:03/04/2022 12:44:49 letter sent: Normal Exam ACR BI-RADS Category 1: Negative 3341F
== END ==
PROVIDERS: PCP Family Medicine; Referring Provider Family Medicine; Visit Provider Family Medicine
DX: Z12.31 Encounter for screening mammogram for malignant neoplasm of breast (principal); Z80.3 Family history of malignant neoplasm of breast
CPT/HCPCS: 77063; 77067

== ENCOUNTER → 2022-04-07 11:27 | Outpatient (CLI) | payer MEDICARE, SELFPAY ==
[2022-04-07 12:31] LABS: Add Manual Diff / Slide Review NO; Basophils Absolute Auto 0 /uL (0-100); Basophils Percent Auto 0.4 % (0-2); Eosinophils Absolute Auto 100 /uL (0-450); Eosinophils Percent Auto 0.9 % (2-4); Hematocrit 40.3 % (36-46); Hemoglobin 13.7 g/dL (12.0-16.0); Lymphocytes Absolute Auto 1600 /uL (1100-4500); Lymphocytes Percent Auto 27.2 % (25-40); Mean Corpuscular HGB Conc 34.1 % (30-36); Mean Corpuscular Hemoglobin 31.3 PG (26-34); Mean Corpuscular Volume 91.8 fL (80-100); Monocytes Absolute Auto 400 /uL (0-900); Monocytes Percent Auto 6.2 % (3-14); Neutrophils Absolute Auto 3800 /uL (1500-7000); Neutrophils Percent Auto 65.3 % (50-75); Platelet Count 187 X10^3/uL (150-400); Red Blood Cell Count 4.39 X10^6/uL (4.0-5.2); Red Cell Distribution Width 12.8 % (11.6-14.8); White Blood Cell Count 5.9 X10^3/uL (4.5-11.0)
[2022-04-07 13:14] LABS: Alanine Aminotransferase 28 IU/L (<35); Albumin 4.3 g/dL (3.5-5.0); Albumin Globulin Ratio 1.5 (1.0-2.8); Alkaline Phosphatase 56 U/L (38-126); Aspartate Aminotransferase 36 IU/L (14-36); BUN Creatinine Ratio 23.4 (6-22); Bilirubin Total 0.6 mg/dL (0.2-1.3); Blood Urea Nitrogen 18 mg/dL (7-17); Calcium 9.2 mg/dL (8.4-10.2); Carbon Dioxide 31 mmol/L (22-32); Chloride 101 mmol/L (98-107); Cholesterol 226 mg/dL (140-199); Estimated Glomerular Filt Rate > 60 mL/min (>60); Globulin 2.8 g/dL (1.7-4.1); Glucose 89 mg/dL (80-110); HDL Cholesterol 84 mg/dL (40-60); HEMOLYSIS < 15 (0-50); LDL Cholesterol Calculated 129 mg/dL (<100); Lactate Dehydrogenase 169 U/L (120-246); Potassium 3.8 mmol/L (3.4-5.1); Sodium 140 mmol/L (137-145); Total Protein 7.1 g/dL (6.3-8.2); Triglycerides 66 mg/dL (35-150)
[2022-04-07 13:43] LABS: Thyroid Stimulating Hormone 1.81 uIU/mL (0.47-4.68)
[2022-04-07 15:15] LABS: Vitamin D 25 Hydroxy (D3) 66.8 ng/mL (30.0-100.0)
[2022-04-08 03:56] LABS: Immunoglobulin A 259 mg/dL (64-422); Immunoglobulin G, Quantitative 838 mg/dL (586-1602); Immunoglobulin M, Quantitative 102 mg/dL (26-217)
== END ==
PROVIDERS: PCP Family Medicine; Referring Provider Family Medicine; Visit Provider Family Medicine
DX: I10 Essential (primary) hypertension (principal); E55.9 Vitamin D deficiency, unspecified; C85.80 Other specified types of non-Hodgkin lymphoma, unspecified site
CPT/HCPCS: 36415; 80053; 80061; 82306; 82784; 83615; 84443; 85025

== ENCOUNTER → 2022-05-14 16:32 | Outpatient (CLI) | payer MEDICARE, SELFPAY ==
--- NOTE | 2022-05-14 16:34 | DI.US.S_ITS ---
PROCEDURE: US PELVIC COMPLETE INDICATIONS: UNSPECIFIED OVARIAN CYST RIGHT SIDE TECHNIQUE: Real-time scanning was performed of the pelvic organs, with image documentation. Additional endovaginal scanning was necessary due to incomplete visualization of the adnexal and endometrial structures by transabdominal scanning. There is a small 0.5 cm hyperechoic focus along the endometrial canal. COMPARISON: [facility], , US PELVIC COMPLETE, 09/23/2020, 13:56. FINDINGS: Uterus: Uterus is anteverted and normal in size at 4.7 x 3.7 x 1.8 cm. The myometrium is heterogeneous. The endometrium measures 1.6 mm combined thickness. There is a small echogenic probable fibroid measuring 0.3 x 0.3 x 0.4 cm in the midline anterior intramural. Ovaries: The right ovary measures 5.0 x 4.8 x 4.2. Right ovarian volume measures 53.8 cc. There is a relative stable appearance of a of right renal cyst measuring 4.6 x 4.0 x 3.2 cm previously measuring 4.0 x 3.9 x 3.5 cm. . Other: No pathologic free abdominal or there is some physiologic free fluid noted in the pelvis. IMPRESSION: 1. Relatively stable appearance of right ovarian cyst today measuring 4.6 cm in maximal dimension previously measuring 4.0 cm in maximal dimension. 2. Status post left oophorectomy. 3. Small probable fibroid midline anterior intramural measuring 0.4 cm in maximal dimension. 4. Physiologic free fluid noted in the pelvis. Approved by: Bin Way M.D. on 05/15/2022 at 10:39
== END ==
PROVIDERS: PCP Family Medicine; Referring Provider Family Medicine; Visit Provider Family Medicine
DX: N83.201 Unspecified ovarian cyst, right side (principal); Z90.721 Acquired absence of ovaries, unilateral
CPT/HCPCS: 76830; 76856

== ENCOUNTER → 2023-04-07 17:02 | Outpatient (CLI) | payer MEDICARE, SELFPAY ==
--- NOTE | 2023-04-07 | DI.MG.S_ITS ---
BILATERAL DIGITAL SCREENING MAMMOGRAM 3D/2D WITH CAD: 04/07/2023 CLINICAL: Routine screening. Family history of breast cancer. Comparison is made to exams dated: 03/04/2022 mammogram, 02/19/2021 mammogram, and 10/30/2019 mammogram - [facility]. Both breasts are heterogeneously dense, which may obscure small masses (category c / 51-75% glandular tissue). Current study was also evaluated with a Computer Aided Detection (CAD) system. No significant masses, calcifications, or other findings are seen in either breast. There has been no significant interval change. IMPRESSION: NEGATIVE There is no mammographic evidence of malignancy. A 1 year screening mammogram is recommended. Based on the Tyrer Cuzick model (a risk assessment model) the patient's lifetime risk is 8.2% and her 10 year risk is 7.4%. According to the ACR, ACS, and NCCN guidelines, an annual breast MRI exam along with mammogram is recommended if the patient's lifetime risk is 20% or greater. This exam was interpreted at Station ID: [id number]. NOTE: For mammograms, a report in lay terms will be sent to the patient. Approximately 15% of breast malignancies will not be visualized mammographically. In the management of a palpable breast mass, a negative mammogram must not discourage biopsy of a clinically suspicious lesion. Electronically Signed By: Nicholas zarate/stanford:04/08/2023 12:06:18 letter sent: Normal Exam ACR BI-RADS Category 1: Negative 3341F
== END ==
LOC: MAMMO 17:04
PROVIDERS: PCP Family Medicine; Referring Provider Family Medicine; Visit Provider Family Medicine
DX: Z12.31 Encounter for screening mammogram for malignant neoplasm of breast (principal); Z80.3 Family history of malignant neoplasm of breast; R92.333 Mammographic heterogeneous density, bilateral breasts
CPT/HCPCS: 77063; 77067

== ENCOUNTER → 2023-04-23 07:27 | Outpatient (CLI) | payer MEDICARE, SELFPAY ==
[2023-04-23 08:03] LABS: Add Manual Diff / Slide Review NO; Basophils Absolute Auto 0 /uL (0-100); Basophils Percent Auto 0.5 % (0-2); Eosinophils Absolute Auto 100 /uL (0-450); Eosinophils Percent Auto 1.4 % (2-4); Hematocrit 39.9 % (36-46); Hemoglobin 13.6 g/dL (12.0-16.0); Lymphocytes Absolute Auto 1700 /uL (1100-4500); Lymphocytes Percent Auto 39.3 % (25-40); Mean Corpuscular HGB Conc 34.2 % (30-36); Mean Corpuscular Hemoglobin 31.4 PG (26-34); Mean Corpuscular Volume 91.8 fL (80-100); Monocytes Absolute Auto 500 /uL (0-900); Monocytes Percent Auto 10.6 % (3-14); Neutrophils Absolute Auto 2100 /uL (1500-7000); Neutrophils Percent Auto 48.2 % (50-75); Platelet Count 189 X10^3/uL (150-400); Red Blood Cell Count 4.35 X10^6/uL (4.0-5.2); Red Cell Distribution Width 12.6 % (11.6-14.8); White Blood Cell Count 4.3 X10^3/uL (4.5-11.0)
[2023-04-23 08:25] LABS: Alanine Aminotransferase 34 IU/L (<35); Albumin 4.1 g/dL (3.5-5.0); Albumin Globulin Ratio 1.5 (1.0-2.8); Alkaline Phosphatase 53 U/L (38-126); Aspartate Aminotransferase 38 IU/L (14-36); BUN Creatinine Ratio 22.7 (6-22); Bilirubin Total 0.7 mg/dL (0.2-1.3); Blood Urea Nitrogen 20 mg/dL (7-17); Calcium 9.6 mg/dL (8.4-10.2); Carbon Dioxide 34 mmol/L (22-32); Chloride 105 mmol/L (98-107); Cholesterol 200 mg/dL (140-199); Estimated Glomerular Filt Rate > 60 mL/min (>60); Globulin 2.8 g/dL (1.7-4.1); Glucose 85 mg/dL (80-110); HDL Cholesterol 76 mg/dL (40-60); HEMOLYSIS < 15 (0-50); LDL Cholesterol Calculated 110 mg/dL (<100); Lactate Dehydrogenase 171 U/L (120-246); Potassium 3.9 mmol/L (3.4-5.1); Sodium 140 mmol/L (137-145); Total Protein 6.9 g/dL (6.3-8.2); Triglycerides 70 mg/dL (35-150)
[2023-04-23 08:38] LABS: Vitamin D 25 Hydroxy (D3) 69.2 ng/mL (30.0-100.0)
[2023-04-23 08:54] LABS: Thyroid Stimulating Hormone 4.94 uIU/mL (0.47-4.68)
== END ==
LOC: LAB 07:27
PROVIDERS: PCP Family Medicine; Referring Provider Family Medicine; Visit Provider Family Medicine
DX: I10 Essential (primary) hypertension (principal); E55.9 Vitamin D deficiency, unspecified; C85.80 Other specified types of non-Hodgkin lymphoma, unspecified site
CPT/HCPCS: 36415; 80053; 80061; 82306; 83615; 84443; 85025

== ENCOUNTER 2023-04-26 09:06 | Emergency (ER) | payer MEDICARE, SELFPAY ==
[2023-04-26 09:34] VITALS: BP 150/72; PULSE 88; RESP 18; TEMP 36.4; O2SAT 99; BMI 20.3
--- NOTE | 2023-04-26 09:39 | DI.RAD.S_ITS ---
PROCEDURE: XR KNEE LT 3V INDICATIONS: felt a pop TECHNIQUE: 3 views of the knee were acquired. COMPARISON: [facility], CR, XR KNEE RT 3V, 08/27/2020, 14:01. FINDINGS: Bones: No fractures or dislocations. No suspicious bony lesions. Soft tissues: Moderate joint effusion. No suspicious soft tissue calcifications. IMPRESSION: Moderate effusion. No visualized acute fracture or dislocation. However, if clinical concern and/or pain persist, short interval imaging followup in 7-10 days is recommended, as occult injury cannot be definitively excluded. Dictated by: Mariela Price M.D. on 04/26/2023 at 10:21 Approved by: Mariela Price M.D. on 04/26/2023 at 10:21
--- NOTE | 2023-04-26 11:12 | ED_ITS ---
HPI - Extremity Injury (Lower) <Jaja Serrano PA-C - Last Filed: 04/26/23 11:27> General Chief Complaint: Extremity Injury, Lower Stated Complaint: Knee pain, per pt can't walk Time Seen by Provider: 04/26/23 09:33 Source: patient Mode of arrival: Wheelchair History of Present Illness HPI Narrative: 73-year-old female presents to the ED with a left knee injury sustained just prior to arrival. Patient states she was walking her dog, when she bent down to pick a twig when she felt a pop in her left knee and pain. Patient is able to walk after taking to a leaves. No numbness, tingling, weakness. Related Data Home Medications Medication Instructions Recorded Confirmed amlodipine 5 mg tablet 5 mg PO DAILY 11/04/20 08/14/22 Allergies Allergy/AdvReac Type Severity Reaction Status Date / Time Iodinated Contrast Media Allergy Verified 04/26/23 09:39 shrimp Allergy Verified 04/26/23 09:39 Review of Systems <Jaja Serrano PA-C - Last Filed: 04/26/23 11:27> Constitutional Constitutional: Denies chills, Denies fatigue, Denies fever(s), Denies frequent falls, Denies lethargy and Denies weakness Eyes Eyes: Denies change in vision, Denies eye discharge, Denies irritation and Denies loss of vision ENT Ears, Nose, Mouth, and Throat: Denies change in voice, Denies dizziness, Denies neck pain, Denies sore throat and Denies throat swelling Cardiovascular Cardiovascular: Denies chest pain, Denies irregular heart rhythm, Denies lightheadedness, Denies palpitations, Denies dyspnea, Denies dyspnea on exertion and Denies orthopnea Respiratory Respiratory: Denies cough, Denies dyspnea, Denies dyspnea on exertion and Denies wheezing Gastrointestinal Gastrointestinal: Denies abdominal pain, Denies change in bowel habits, Denies diarrhea, Denies nausea and Denies vomiting Musculoskeletal Musculoskeletal: Denies neck pain and Denies numbness Comments: Left knee pain Integumentary/Breasts Skin/Breast: Denies pruritus, Denies erythema, Denies rash and Denies wounds Neurologic Neurologic: Denies behavioral changes, Denies confusion, Denies dizziness, Denies frequent falls, Denies loss of vision, Denies numbness and Denies weakness Psychiatric Psychiatric: Denies anxiety, Denies behavioral changes, Denies confusion, Denies depression, Denies homicidal ideation and Denies suicidal ideation Endocrine Endocrine: Denies fatigue, Denies flushing and Denies palpitations Hematologic/Lymphatic Hematologic/Lymphatic: Denies easy bruising Allergic/Immunologic Allergic/Immunologic: Denies urticaria, Denies throat swelling and Denies wheezing Patient History <Jaja Serrano PA-C - Last Filed: 04/26/23 11:27> Social History Smoking Status: Never smoker Smoking Status: Never smoker alcohol intake frequency: 0-2 drinks per day Substance Use Type: does not use Exam <Jaja Serrano PA-C - Last Filed: 04/26/23 11:27> Narrative Exam Narrative: Const General:?cooperative, healthy appearing and comfortable [facility] Head:?normal to inspection Ears:?hearing grossly normal bilaterally Nose:?external nose normal Face and sinus:?normal facial exam and sinuses nontender Mouth:?oral mucosae normal Throat:?posterior oropharynx normal Eyes General:?appearance normal, both eyes and all related structures Neck Neck:?normal visual inspection and no lymphadenopathy noted Resp Effort & Inspection:?normal respiratory effort Auscultation:?clear to auscultation bilaterally Cardio Rate:?regular rate Rhythm:?regular rhythm Musculoskeletal No swelling, bruising, erythema, deformities noted to the left knee. No tenderness to palpation. There is full range of motion. Strength and sensation is intact. Patient is neurovascularly intact. Patient able to walk, although somewhat painful. Neuro General:?patient alert, patient awake and patient oriented x3 Initial Vital Signs Initial Vital Signs: Vital Signs Temperature 97.6 F 04/26/23 09:34 Pulse Rate 88 04/26/23 09:34 Respiratory Rate 18 04/26/23 09:34 Blood Pressure 150/72 H 04/26/23 09:34 Pulse Oximetry 99 04/26/23 09:34 Oxygen Delivery Method Room Air 04/26/23 09:34 <Bijal Franklin DO - Last Filed: 04/27/23 07:39> Initial Vital Signs Initial Vital Signs: Vital Signs Temperature 97.6 F 04/26/23 09:34 Pulse Rate 88 04/26/23 09:34 Respiratory Rate 18 04/26/23 09:34 Blood Pressure 150/72 H 04/26/23 09:34 Pulse Oximetry 99 04/26/23 09:34 Oxygen Delivery Method Room Air 04/26/23 09:34 Course <Jaja Serrano PA-C - Last Filed: 04/26/23 11:27> Orders Ordered: ED Orders 04/26/23 09:39 XR knee LT 3V Stat Vital Signs Vital signs: Vital Signs - 8 hr 04/26/23 09:34 Temperature 97.6 F Pulse Rate 88 Respiratory Rate 18 Blood Pressure 150/72 H Pulse Oximetry 99 Oxygen Delivery Method Room Air <Bijal Franklin DO - Last Filed: 04/27/23 07:39> Orders Ordered: ED Orders 04/26/23 09:39 XR knee LT 3V Stat Vital Signs Vital signs: Vital Signs - 8 hr 04/26/23 09:34 Temperature 97.6 F Pulse Rate 88 Respiratory Rate 18 Blood Pressure 150/72 H Pulse Oximetry 99 Oxygen Delivery Method Room Air MDM - Extremity Injury (Lower) <Jaja Serrano PA-C - Last Filed: 04/26/23 11:27> MDM Narrative Medical decision making narrative: 73-year-old female presents to the ED with a left knee injury sustained just prior to arrival. Concern for fracture/dislocation versus musculoskeletal sprain/strain versus other. X-ray was obtained which shows no fracture or dislocation but a moderate effusion. Discussed findings with patient. Recommend supportive measures with a leave, ibuprofen, Tylenol, lidocaine patches, knee brace. Recommend follow-up with PCP as soon as possible. ED return precautions discussed with patient. Patient verbalized understanding. Medical records reviewed: Yes Discharge Plan Departure Patient Disposition: Home Clinical Impression: Knee Injury Instructions: DI for Knee Pain Activity Restrictions/Additional Instructions: You were evaluated in the ED today for a left knee injury. Your x-ray does not show a fracture or dislocation. Your symptoms are likely due to a musculoskeletal sprain/strain from the injury. You may rested for the next few days, take Aleve or ibuprofen. You may also take 1000 mg of Tylenol every 8 hours for pain. Applying a knee brace can provide some relief as well. [id number] lidocaine patches are an option for pain control as well. Please follow-up with your PCP as soon as possible. Return to the ED if you have worsening symptoms, numbness, tingling, weakness. Prescriptions: No Action amlodipine 5 mg tablet 5 mg PO DAILY Referrals: Marquis Delacruz MD [Primary Care Provider] - Stand Alone Forms: Patient Portal/API ED Sign-out <Bijal Franklin DO - Last Filed: 04/27/23 07:39> Cosign ED Attending Cosvipulature Attestation: I was immediately available in the department for consultation.
[2023-04-26 11:30] VITALS: BP 133/75; PULSE 80; RESP 18; O2SAT 99
== END 2023-04-26 11:31 | disposition home or self-care (01) ==
PROVIDERS: Emergency Provider Student in an Organized Health Care Education/Training Program; PCP Family Medicine
DX: S89.92XA Unspecified injury of left lower leg, initial encounter (principal); X50.1XXA Overexertion from prolonged static or awkward postures, initial encounter; Y93.89 Activity, other specified
CPT/HCPCS: 73562; 99281; 99282

== ENCOUNTER → 2023-04-29 19:11 | Outpatient (CLI) | payer MEDICARE, SELFPAY ==
--- NOTE | 2023-04-29 | DI.MRI.S_ITS ---
PROCEDURE: MR KNEE LT WO CON INDICATIONS: pain in lt knee TECHNIQUE: Noncontrast sagittal PD fast spin echo and T2 fast spin echo with fat saturation, sagittal 3-D FLASH with fat saturation; coronal T1 spin echo and PD fast spin echo with fat saturation, and axial PD fast spin echo with fat saturation through the knee. COMPARISON: None. FINDINGS: Image quality: Excellent. Menisci: The medial meniscus is intact. Signal abnormality involving posterior horn of lateral meniscus extending to inferior articulating surface suggestive of oblique tear. The meniscal root ligaments appear intact. Cruciate ligaments: The anterior and posterior cruciate ligaments appear intact. Medial structures: The medial collateral ligament appears mildly thickened with surrounding soft tissue edema. Visualized portions of the pes anserinus tendons appear normal. No abnormal bursal fluid. Lateral structures: The lateral collateral ligament, long and short heads of the biceps femoris tendon appear intact. The popliteus tendon appears normal. Iliotibial band appears normal. Anterior structures: The quadriceps and patellar tendons appear intact. Patellar alignment is normal. No femoral trochlear dysplasia or ventral trochlear prominence. No edema in the infrapatellar fat pad. Bones and cartilage: No bone marrow contusions or fractures. Mild tricompartmental osteoarthritis and low-grade chondromalacia is seen. Joint space: There is small knee joint fluid. There is a Son's cyst measures 1.6 x 0.6 x 3.2 cm in size. Normal appearing synovial plicae are incidentally noted. IMPRESSION: 1. Oblique tear involving posterior horn of medial meniscus extending to inferior articulating surface. The lateral meniscus is intact. 2. The cruciate ligaments are intact. Low-grade MCL sprain. 3. Mild tricompartmental osteoarthritis and low-grade chondromalacia. No fracture or dislocation. Small joint effusion and a small Son's cyst as above. No gross loose bodies. Dictated by: Tapan Shearer M.D. on 04/30/2023 at 9:55 Approved by: Tapan Shearer M.D. on 04/30/2023 at 10:06
== END ==
PROVIDERS: PCP Family Medicine; Referring Provider Family Medicine; Visit Provider Family Medicine
DX: S83.242A Other tear of medial meniscus, current injury, left knee, initial encounter (principal); S83.412A Sprain of medial collateral ligament of left knee, initial encounter; M17.12 Unilateral primary osteoarthritis, left knee; M94.262 Chondromalacia, left knee; M71.22 Synovial cyst of popliteal space [Baker], left knee; M23.92 Unspecified internal derangement of left knee; M25.562 Pain in left knee; M25.462 Effusion, left knee
CPT/HCPCS: 73721

== ENCOUNTER → 2023-05-28 07:22 | Outpatient (CLI) | payer MEDICARE, SELFPAY ==
[2023-05-28 08:52] LABS: Free T4, Direct Thyroxine 1.06 ng/dL (0.78-2.19)
[2023-05-28 09:06] LABS: Thyroid Stimulating Hormone 4.63 uIU/mL (0.47-4.68)
== END ==
LOC: LAB 07:23
PROVIDERS: PCP Family Medicine; Referring Provider Family Medicine; Visit Provider Family Medicine
DX: E03.9 Hypothyroidism, unspecified (principal)
CPT/HCPCS: 36415; 84439; 84443

== ENCOUNTER → 2023-07-16 07:28 | Outpatient (CLI) | payer MEDICARE, SELFPAY ==
[2023-07-16 08:41] LABS: Free T4, Direct Thyroxine 1.19 ng/dL (0.78-2.19)
[2023-07-16 08:55] LABS: Thyroid Stimulating Hormone 2.08 uIU/mL (0.47-4.68)
== END ==
PROVIDERS: PCP Family Medicine; Referring Provider Family Medicine; Visit Provider Family Medicine
DX: E03.9 Hypothyroidism, unspecified (principal)
CPT/HCPCS: 36415; 84439; 84443

== ENCOUNTER → 2023-09-20 07:22 | Outpatient (CLI) | payer MEDICARE, SELFPAY ==
[2023-09-20 09:18] LABS: Free T4, Direct Thyroxine 1.25 ng/dL (0.78-2.19)
[2023-09-20 09:33] LABS: Thyroid Stimulating Hormone 2.52 uIU/mL (0.47-4.68)
== END ==
PROVIDERS: PCP Family Medicine; Referring Provider Family Medicine; Visit Provider Family Medicine
DX: E03.9 Hypothyroidism, unspecified (principal)
CPT/HCPCS: 36415; 84439; 84443

== ENCOUNTER → 2024-01-18 13:52 | Outpatient (CLI) | payer MEDICARE, SELFPAY ==
[2024-01-18 16:14] LABS: Free T4, Direct Thyroxine 1.06 ng/dL (0.78-2.19)
[2024-01-18 16:28] LABS: Thyroid Stimulating Hormone 1.95 uIU/mL (0.47-4.68)
== END ==
PROVIDERS: PCP Family Medicine; Referring Provider Family Medicine; Visit Provider Family Medicine
DX: E03.9 Hypothyroidism, unspecified (principal)
CPT/HCPCS: 36415; 84439; 84443

== ENCOUNTER → 2024-03-10 08:09 | Outpatient (CLI) | payer MEDICARE, SELFPAY ==
[2024-03-10 09:15] LABS: Add Manual Diff / Slide Review NO; Basophils Absolute Auto 0 /uL (0-100); Basophils Percent Auto 0.8 % (0-2); Eosinophils Absolute Auto 100 /uL (0-450); Eosinophils Percent Auto 1.6 % (2-4); Hematocrit 41.5 % (36-46); Hemoglobin 14.2 g/dL (12.0-16.0); Lymphocytes Absolute Auto 1300 /uL (1100-4500); Lymphocytes Percent Auto 35.9 % (25-40); Mean Corpuscular HGB Conc 34.3 % (30-36); Mean Corpuscular Hemoglobin 31.6 PG (26-34); Mean Corpuscular Volume 92.2 fL (80-100); Monocytes Absolute Auto 300 /uL (0-900); Monocytes Percent Auto 8.6 % (3-14); Neutrophils Absolute Auto 2000 /uL (1500-7000); Neutrophils Percent Auto 53.1 % (50-75); Platelet Count 215 X10^3/uL (150-400); Red Blood Cell Count 4.51 X10^6/uL (4.0-5.2); Red Cell Distribution Width 12.5 % (11.6-14.8); White Blood Cell Count 3.8 X10^3/uL (4.5-11.0)
[2024-03-10 09:39] LABS: Alanine Aminotransferase 32 IU/L (<35); Albumin 4.4 g/dL (3.5-5.0); Albumin Globulin Ratio 1.8 (1.0-2.8); Alkaline Phosphatase 55 U/L (38-126); Aspartate Aminotransferase 41 IU/L (14-36); BUN Creatinine Ratio 18.2 (6-22); Bilirubin Total 0.5 mg/dL (0.2-1.3); Blood Urea Nitrogen 16 mg/dL (7-17); Calcium 9.8 mg/dL (8.4-10.2); Carbon Dioxide 31 mmol/L (22-32); Chloride 105 mmol/L (98-107); Cholesterol 226 mg/dL (140-199); Estimated Glomerular Filt Rate > 60 mL/min (>60); Globulin 2.5 g/dL (1.7-4.1); Glucose 95 mg/dL (80-110); HDL Cholesterol 83 mg/dL (40-60); HEMOLYSIS < 15 (0-50); LDL Cholesterol Calculated 130 mg/dL (<100); Lactate Dehydrogenase 202 U/L (120-246); Potassium 4.4 mmol/L (3.4-5.1); Sodium 140 mmol/L (137-145); Total Protein 6.9 g/dL (6.3-8.2); Triglycerides 64 mg/dL (35-150)
[2024-03-10 09:52] LABS: Vitamin D 25 Hydroxy (D3) 61.1 ng/mL (30.0-100.0)
== END ==
PROVIDERS: PCP Family Medicine; Referring Provider Family Medicine; Visit Provider Family Medicine
DX: I10 Essential (primary) hypertension (principal); E55.9 Vitamin D deficiency, unspecified; C85.80 Other specified types of non-Hodgkin lymphoma, unspecified site
CPT/HCPCS: 36415; 80053; 80061; 82306; 83615; 85025

== ENCOUNTER → 2024-04-10 16:49 | Outpatient (CLI) | payer MEDICARE, SELFPAY ==
--- NOTE | 2024-04-10 16:50 | DI.MG.S_ITS ---
BILATERAL DIGITAL SCREENING MAMMOGRAM 3D/2D WITH CAD: 04/10/2024 CLINICAL: Routine screening. Family history of breast cancer. Comparison is made to exams dated: 04/07/2023 mammogram, 03/04/2022 mammogram, 02/19/2021 mammogram, and 10/30/2019 mammogram - [facility]. The breasts are heterogeneously dense, which may obscure small masses (category c / 51-75% glandular tissue). Current study was also evaluated with a Computer Aided Detection (CAD) system. No significant masses, calcifications, or other findings are seen in either breast. There has been no significant interval change. IMPRESSION: NEGATIVE There is no mammographic evidence of malignancy. A 1 year screening mammogram is recommended. Based on the Tyrer Cuzick model (a risk assessment model) the patient's lifetime risk is 7.6% and her 10 year risk is 7.6%. According to the ACR, ACS, and NCCN guidelines, an annual breast MRI exam along with mammogram is recommended if the patient's lifetime risk is 20% or greater. This exam was interpreted at Station ID: [id number]. NOTE: For mammograms, a report in lay terms will be sent to the patient. Approximately 15% of breast malignancies will not be visualized mammographically. In the management of a palpable breast mass, a negative mammogram must not discourage biopsy of a clinically suspicious lesion. Electronically Signed By: Clayton paul/stanford:04/11/2024 14:21:42 letter sent: Normal Exam ACR BI-RADS Category 1: Negative
== END ==
PROVIDERS: PCP Family Medicine; Referring Provider Family Medicine; Visit Provider Family Medicine
DX: Z12.31 Encounter for screening mammogram for malignant neoplasm of breast (principal); Z80.3 Family history of malignant neoplasm of breast; R92.333 Mammographic heterogeneous density, bilateral breasts
CPT/HCPCS: 77063; 77067

== ENCOUNTER 2024-06-24 13:25 | Emergency (ER) | payer MEDICARE, SELFPAY ==
[2024-06-24 13:28] VITALS: BP 181/98; PULSE 111; RESP 18; TEMP 36.4; O2SAT 100; BMI 18.8
--- NOTE | 2024-06-24 13:32 | DI.RAD.S_ITS ---
PROCEDURE: XR CHEST 1V INDICATIONS: Chest Pain TECHNIQUE: One view of the chest was acquired. COMPARISON: [facility], CR, XR CHEST 1V, 11/09/2021, 0:36. FINDINGS: Surgical changes and devices: None. Lungs and pleura: Lungs are clear, it hyperexpanded. No pleural effusions or pneumothorax. Mediastinum: The cardiac contours are within normal limits. The aorta demonstrates calcification and tortuosity. Bones and chest wall: No suspicious bony lesions. Overlying soft tissues appear unremarkable. IMPRESSION: Portable chest within normal limits for age. Dictated by: Henrry Escamilla M.D. on 06/24/2024 at 13:37 Approved by: Henrry Escamilla M.D. on 06/24/2024 at 13:38
[2024-06-24 13:35] VITALS: PULSE 55; O2SAT 93
[2024-06-24 13:46] VITALS: BP 188/100; PULSE 96; RESP 13; O2SAT 100
--- NOTE | 2024-06-24 13:50 | EKG_ITS ---
[facility] [address] [place] [address] Test Date: 2024-06-24 Pat Name: Patricia Rodriguez Department: [facility] Room: Gender: Female [employer] Labou[employer]: EVELYN : 1950 Requested By: Order Number: [id number] Reading MD: Cuauhtemoc Lujan MD Measurements Intervals [place] Rate: 92 P: 61 NE: 152 QRS: 3 QRSD: 70 T: 19 QT: 344 QTc: 425 Interpretive Statements Sinus rhythm with premature atrial complexes Possible Left atrial enlargement Nonspecific ST abnormality Electronically Signed On 06-25-2024 8:42:49 PDT by Cuauhtemoc Lujan MD
[2024-06-24 13:53] LABS: Add Manual Diff / Slide Review NO; Basophils Absolute Auto 0 /uL (0-100); Basophils Percent Auto 0.6 % (0-2); Eosinophils Absolute Auto 100 /uL (0-450); Hematocrit 42.5 % (36-46); Hemoglobin 14.6 g/dL (12.0-16.0); Lymphocytes Absolute Auto 1900 /uL (1100-4500); Lymphocytes Percent Auto 28.1 % (25-40); Mean Corpuscular HGB Conc 34.4 % (30-36); Mean Corpuscular Hemoglobin 31.7 PG (26-34); Mean Corpuscular Volume 92.2 fL (80-100); Monocytes Absolute Auto 400 /uL (0-900); Monocytes Percent Auto 5.9 % (3-14); Neutrophils Absolute Auto 4400 /uL (1500-7000); Neutrophils Percent Auto 64.4 % (50-75); Platelet Count 238 X10^3/uL (150-400); Red Blood Cell Count 4.61 X10^6/uL (4.0-5.2); Red Cell Distribution Width 12.3 % (11.6-14.8); White Blood Cell Count 6.8 X10^3/uL (4.5-11.0)
[2024-06-24 14:00] VITALS: BP 167/88; PULSE 89; RESP 12; O2SAT 100
[2024-06-24 14:00] LABS: Prothrombin Time 11.1 SECONDS (9.4-12.5)
[2024-06-24 14:03] LABS: PTT Partial Thromboplastin Tim 35 SECONDS (25.1-36.5)
[2024-06-24 14:07] LABS: Alanine Aminotransferase 39 IU/L (<35); Albumin 4.7 g/dL (3.5-5.0); Albumin Globulin Ratio 1.7 (1.0-2.8); Alkaline Phosphatase 93 U/L (38-126); Aspartate Aminotransferase 49 IU/L (14-36); BUN Creatinine Ratio 28.4 (6-22); Bilirubin Total 0.6 mg/dL (0.2-1.3); Blood Urea Nitrogen 23 mg/dL (7-17); Calcium 9.3 mg/dL (8.4-10.2); Carbon Dioxide 26 mmol/L (22-32); Chloride 103 mmol/L (98-107); Creatine Kinase 205 U/L (30-135); Estimated Glomerular Filt Rate > 60 mL/min (>60); Globulin 2.7 g/dL (1.7-4.1); Glucose 178 mg/dL (70-99); HEMOLYSIS 24 (0-50); Lipase 280 U/L (23-300); Potassium 3.2 mmol/L (3.4-5.1); Sodium 138 mmol/L (137-145); Total Protein 7.4 g/dL (6.3-8.2)
[2024-06-24 14:08] LABS: Lactate (Lactic Acid) 1.1 mmol/L (0.7-2.1)
[2024-06-24] MEDS: ASPIRIN 81 MG CHEW TAB 324 MG PO (14:16)
[2024-06-24 14:20] LABS: NT-proBNP (BNP-Adult 18+) 82 pg/mL (<450); Troponin I < 0.012 ng/mL (0.01-0.034)
[2024-06-24 14:32] VITALS: PULSE 84; O2SAT 95
[2024-06-24 15:00] VITALS: BP 151/84; PULSE 82; RESP 12; O2SAT 100
--- NOTE | 2024-06-24 15:16 | ED.ARRPALP ---
HPI - Arrhythmia/Palpitations General Chief Complaint: Arrhythmia/Palpitations Stated Complaint: Heart palpatations started 45min;wants to check Time Seen by Provider: 06/24/24 15:08 Source: patient Mode of arrival: Ambulatory History of Present Illness HPI narrative: Patient is a 74-year-old female history of hypertension presenting to day with palpitations. Reports that she was feeling palpitations for about 30 minutes off and on. No dizziness lightheadedness she did not pass out. Now sitting in the ED for couple of hours symptoms have completely resolved. She was having PVCs occasionally on the monitor. This is happened to her before. She was followed by Dr. Armstrong cardiology. She denies any shortness of breath or any other symptoms Related Data Home Medications Medication Instructions Recorded Confirmed amlodipine 5 mg tablet 5 mg PO DAILY 11/04/20 08/14/22 Allergies Allergy/AdvReac Type Severity Reaction Status Date / Time Iodinated Contrast Media Allergy Verified 04/26/23 09:39 shrimp Allergy Verified 04/26/23 09:39 Patient History Social History Smoking Status: Former smoker Smoking Status: Former smoker alcohol intake frequency: 0-2 drinks per day Exam Initial Vital Signs Initial Vital Signs: Vital Signs Temperature 97.5 F L 06/24/24 13:28 Pulse Rate 111 H 06/24/24 13:28 Respiratory Rate 18 06/24/24 13:28 Blood Pressure 181/98 H 06/24/24 13:28 Pulse Oximetry 100 06/24/24 13:28 Oxygen Delivery Method Room Air 06/24/24 13:28 GENERAL: Alert very pleasant 74-year-old female and in no acute distress. HEENT: Head atraumatic,EOMI, pupils reactive, face symmetric, moist mucous membranes CARDIOVASCULAR: Regular rate and rhythm without murmurs, rubs or gallops. RESPIRATORY: Breath sounds equal bilaterally, no wheezes rales or rhonchi. ABDOMEN: Soft, nontender. Normoactive bowel sounds all 4 quadrants. No guarding or rebound. EXTREMITIES: Normal range of motion, no clubbing or edema. Neurovascularly intact NEUROLOGICAL: Alert and oriented x4.Normal gait and speech. Cranial nerves II through XII grossly intact. SKIN: Warm, dry, no laceration, no petechiae, no rashes or lesions. Course Orders Ordered: ED Orders 06/24/24 13:32 XR chest 1V Stat EKG-12 Lead Stat RT Consult Eval and Treat NOW 06/24/24 13:43 Complete Blood Count AUTO DIFF Stat Comprehensive Metabolic Panel Stat Lactate (Lactic Acid) Stat Lipase Stat Magnesium Stat NT-proBNP (BNP-Adult 18+) Stat PTT Partial Thromboplastin [place] Stat Prothrombin Time INR Stat Troponin & CK Cardiac Panel Stat Discontinued Medications Aspirin (Aspirin 81 Mg Chew Tab) 324 mg PO NOW ONE Stop: 06/24/24 13:33 Last Admin: 06/24/24 14:16 Dose: 324 mg Documented By: LEIDY Vital Signs Vital signs: Vital Signs - 8 hr 06/24/24 13:28 06/24/24 13:35 06/24/24 13:46 Temperature 97.5 F L Pulse Rate 111 H 55 L Respiratory Rate 18 Blood Pressure 181/98 H 188/100 H Pulse Oximetry 100 93 Oxygen Delivery Method Room Air 06/24/24 13:46 06/24/24 14:00 06/24/24 14:00 Temperature Pulse Rate 96 H 89 Respiratory Rate 13 12 Blood Pressure 167/88 H Pulse Oximetry 100 100 Oxygen Delivery Method 06/24/24 14:32 06/24/24 15:00 06/24/24 15:00 Temperature Pulse Rate 84 82 Respiratory Rate 12 Blood Pressure 151/84 H Pulse Oximetry 95 100 Oxygen Delivery Method MDM - Arrhythmia/Palpitations Lab Data 06/24/24 13:43 06/24/24 13:43 Labs: Lab Results 06/24/24 Range/Units 13:43 WBC 6.8 (4.5-11.0) X10^3/uL RBC 4.61 (4.0-5.2) X10^6/uL Hgb 14.6 (12.0-16.0) g/dL Hct 42.5 (36-46) % MCV 92.2 (80-100) fL MCH 31.7 (26-34) PG MCHC 34.4 (30-36) % RDW 12.3 (11.6-14.8) % Plt Count 238 (150-400) X10^3/uL Neut % (Auto) 64.4 (50-75) % Lymph % (Auto) 28.1 (25-40) % [place] % (Auto) 5.9 (3-14) % Eos % (Auto) 1.0 L (2-4) % Baso % (Auto) 0.6 (0-2) % Neut # (Auto) 4400 (4586-7921) /uL Lymph # (Auto) 1900 (3968-1927) /uL [place] # (Auto) 400 (0-900) /uL Eos # (Auto) 100 (0-450) /uL Baso # (Auto) 0 (0-100) /uL PT 11.1 (9.4-12.5) SECONDS INR 1.0 (0.9-1.3) APTT 35 (25.1-36.5) SECONDS Sodium 138 (137-145) mmol/L Potassium 3.2 L (3.4-5.1) mmol/L Chloride 103 (98-107) mmol/L Carbon Dioxide 26 (22-32) mmol/L BUN 23 H (7-17) mg/dL Creatinine 0.81 (0.52-1.04) mg/dL Estimated GFR > 60 (>60) mL/min BUN/Creatinine Ratio 28.4 H (6-22) Glucose 178 H (70-99) mg/dL Lactate 1.1 (0.7-2.1) mmol/L Calcium 9.3 (8.4-10.2) mg/dL Magnesium 2.0 (1.6-2.3) mg/dL Total Bilirubin 0.6 (0.2-1.3) mg/dL AST 49 H (14-36) IU/L ALT 39 H (<35) IU/L Alkaline Phosphatase 93 (38-126) U/L Total Creatine Kinase 205 H (30-135) U/L Troponin I < 0.012 (0.01-0.034) ng/mL NT-Pro-B Natriuret Pep 82 (<450) pg/mL Total Protein 7.4 (6.3-8.2) g/dL Albumin 4.7 (3.5-5.0) g/dL Globulin 2.7 (1.7-4.1) g/dL Albumin/Globulin Ratio 1.7 (1.0-2.8) Lipase 280 (23-300) U/L Imaging Data Chest x-ray: Radiologist's Impresson: PROCEDURE: XR CHEST 1V INDICATIONS: Chest Pain TECHNIQUE: One view of the chest was acquired. COMPARISON: [facility], CR, XR CHEST 1V, 11/09/2021, 0:36. FINDINGS: Surgical changes and devices: None. Lungs and pleura: Lungs are clear, it hyperexpanded. No pleural effusions or pneumothorax. Mediastinum: The cardiac contours are within normal limits. The aorta demonstrates calcification and tortuosity. Bones and chest wall: No suspicious bony lesions. Overlying soft tissues appear unremarkable. IMPRESSION: Portable chest within normal limits for age. Dictated by: Henrry Escamilla M.D. on 06/24/2024 at 13:37 ECG Data Attestation: I personally reviewed and interpreted this ECG as follows: Prior ECG tracings: available for review Interpretation: Normal sinus rhythm rate 92 FL interval 152 QRS 70 QTC 425 MDM Narrative Medical decision making narrative: Patient is a adan 74-year-old female presenting today with heart palpitations. It sounds like this is happened to her before. She was having PVCs when she in. Symptoms have completely resolved although she does have an occasional PVC now. Blood work has been reviewed no significant abnormalities no leukocytosis anemia electrolyte abnormality DANYEL troponin is negative. EKGs reviewed sinus rhythm Chest x-ray reviewed no acute cardiopulmonary process I reviewed monitor and occasional PVC no significant arrhythmia. At this time I recommend outpatient follow up need ZIO patch monitor and re-evaluation with Cardiology as needed. Vitals are stable she ambulated to the restroom without any difficulty. Discharge Plan Departure Patient Disposition: Home Clinical Impression: Palpitations, PVC (premature ventricular contraction) Instructions: Premature Ventricular Beats Activity Restrictions/Additional Instructions: *You have been diagnosed with PVCs palpitations *What to do: At this time I recommend outpatient ZIO patch monitor. 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
== END 2024-06-24 15:38 | disposition home or self-care (01) ==
PROVIDERS: Emergency Provider Emergency Medicine; PCP Family Medicine
DX: R00.2 Palpitations (principal); I49.3 Ventricular premature depolarization
CPT/HCPCS: 36415; 71045; 80053; 82550; 83605; 83690; 83735; 83880; 84484; 85025; 85610; 85730; 93005; 93010; 99284

== ENCOUNTER → 2024-08-21 07:03 | Outpatient (CLI) | payer MEDICARE, SELFPAY ==
[2024-08-21 07:39] LABS: Add Manual Diff / Slide Review NO; Hematocrit 42.4 % (36-46); Hemoglobin 14.4 g/dL (12.0-16.0); Lymphocytes Absolute Auto 1300 /uL (1100-4500); Mean Corpuscular HGB Conc 34.0 % (30-36); Mean Corpuscular Hemoglobin 31.3 PG (26-34); Mean Corpuscular Volume 92.0 fL (80-100); Platelet Count 200 X10^3/uL (150-400)
[2024-08-21 08:10] LABS: Alanine Aminotransferase 34 IU/L (<35); Albumin 4.3 g/dL (3.5-5.0); Albumin Globulin Ratio 1.5 (1.0-2.8); Alkaline Phosphatase 60 U/L (38-126); Blood Urea Nitrogen 20 mg/dL (7-17); Calcium 9.4 mg/dL (8.4-10.2); Carbon Dioxide 33 mmol/L (22-32); Chloride 105 mmol/L (98-107); Estimated Glomerular Filt Rate > 60 mL/min (>60); Globulin 2.8 g/dL (1.7-4.1); Glucose 107 mg/dL (70-99); HEMOLYSIS < 15 (0-50); Potassium 4.2 mmol/L (3.4-5.1); Sodium 140 mmol/L (137-145); Total Protein 7.1 g/dL (6.3-8.2)
[2024-08-21 08:22] LABS: Free T4, Direct Thyroxine 1.21 ng/dL (0.78-2.19)
[2024-08-21 08:36] LABS: Thyroid Stimulating Hormone 2.64 uIU/mL (0.47-4.68)
== END ==
PROVIDERS: PCP Family Medicine; Referring Provider Family Medicine; Visit Provider Family Medicine
DX: E03.9 Hypothyroidism, unspecified (principal); C85.80 Other specified types of non-Hodgkin lymphoma, unspecified site; I10 Essential (primary) hypertension; R61 Generalized hyperhidrosis
CPT/HCPCS: 36415; 80053; 83615; 84439; 84443; 85025

== ENCOUNTER → 2024-12-06 07:52 | Outpatient (CLI) | payer MEDICARE, SELFPAY ==
[2024-12-06 09:17] LABS: Cholesterol 206 mg/dL (140-199); HDL Cholesterol 79 mg/dL (40-60); Triglycerides 65 mg/dL (35-150)
== END ==
PROVIDERS: PCP Family Medicine; Referring Provider Family Medicine; Visit Provider Internal Medicine Cardiovascular Disease
DX: E78.5 Hyperlipidemia, unspecified (principal)
CPT/HCPCS: 36415; 80061

== ENCOUNTER → 2024-12-19 14:02 | Outpatient (CLI) | payer MEDICARE, SELFPAY ==
[2024-12-19 14:56] LABS: Add Manual Diff / Slide Review NO; Hematocrit 41.3 % (36-46); Hemoglobin 14.1 g/dL (12.0-16.0); Lymphocytes Absolute Auto 1500 /uL (1100-4500); Mean Corpuscular HGB Conc 34.0 % (30-36); Mean Corpuscular Hemoglobin 30.8 PG (26-34); Mean Corpuscular Volume 90.6 fL (80-100); Platelet Count 228 X10^3/uL (150-400)
[2024-12-19 15:37] LABS: Alanine Aminotransferase 26 IU/L (<35); Albumin 4.3 g/dL (3.5-5.0); Albumin Globulin Ratio 1.6 (1.0-2.8); Alkaline Phosphatase 63 U/L (38-126); Blood Urea Nitrogen 18 mg/dL (7-17); Calcium 9.5 mg/dL (8.4-10.2); Carbon Dioxide 32 mmol/L (22-32); Chloride 101 mmol/L (98-107); Estimated Glomerular Filt Rate > 60 mL/min (>60); Globulin 2.7 g/dL (1.7-4.1); Glucose 144 mg/dL (70-99); HEMOLYSIS < 15 (0-50); Potassium 4.4 mmol/L (3.4-5.1); Sodium 139 mmol/L (137-145); Total Protein 7.0 g/dL (6.3-8.2)
== END ==
PROVIDERS: PCP Family Medicine; Referring Provider Family Medicine; Visit Provider Family Medicine
DX: C85.85 Other specified types of non-Hodgkin lymphoma, lymph nodes of inguinal region and lower limb (principal)
CPT/HCPCS: 36415; 80053; 83615; 85025; 85651; 86140

== ENCOUNTER → 2025-02-10 14:44 | Outpatient (CLI) | payer MEDICARE, SELFPAY ==
--- NOTE | 2025-02-10 | DI.CT.S_ITS ---
PROCEDURE: CT HEAD/BRAIN WO CON INDICATIONS: progressive cognitive decline TECHNIQUE: Noncontrast 4.5 mm thick angled axial sections acquired from the foramen magnum to the vertex, with coronal and sagittal reformats. For radiation dose reduction, the following was used: automated exposure control, adjustment of mA and/or kV according to patient size. COMPARISON: None. FINDINGS: Image quality: Diagnostic. CSF spaces: Basal cisterns are patent. No extra-axial fluid collections. The ventricles are symmetric in size and shape. Brain: No intracranial bleeds or mass effect. There is slightly advanced cerebral volume loss for age, with resultant ventricular and sulcal prominence. There are mild periventricular and deep white matter chronic small vessel ischemic changes. Skull and face: Calvarium and visualized facial bones appear intact, without suspicious lesions. Sinuses: Visualized sinuses and mastoids are clear. IMPRESSION: Slightly advanced cerebral cortical volume loss for age and chronic microvascular ischemic changes. Dictated by: Arleth Sweet M.D. on 02/11/2025 at 0:08 Approved by: Arleth Sweet M.D. on 02/11/2025 at 0:10
== END ==
LOC: CT 14:45
PROVIDERS: PCP Family Medicine; Referring Provider Family Medicine; Visit Provider Family Medicine
DX: R41.89 Other symptoms and signs involving cognitive functions and awareness (principal); R59.0 Localized enlarged lymph nodes; Z85.72 Personal history of non-Hodgkin lymphomas
CPT/HCPCS: 70450